=== PATIENT | male | born 1960 | race Caucasian/White ===

== ENCOUNTER 2016-06-02 03:29 | Observation (INO) | payer SELFPAY ==
[~2016-06-02] VITALS: Ht 188 cm; Wt 102.0 kg
[2016-06-02 03:31] VITALS: BP 164/86; PULSE 78; RESP 18; TEMP 98.4; O2SAT 99
[2016-06-02 03:35] VITALS: BP 164/86; PULSE 78; RESP 18; TEMP 98.4; O2SAT 97; O2SAT 98
[2016-06-02] MEDS ORDERED: MORPHINE SULFATE 4 MG/ML INJ IV PUSH ONE ×2 (03:45→05:45)
[2016-06-02] MEDS ORDERED: SODIUM CHLORIDE 0.9% FLUSH 10 ML FLUSH IVF PRN (03:45)
--- NOTE | 2016-06-02 04:21 | RADRPT ---
EXAM DATE/TIME: 06/02/2016 03:55 [facility] COMPARISON: No previous studies available for comparison. INDICATIONS : Chest pain. MEDICAL HISTORY : None. SURGICAL HISTORY : None. ENCOUNTER: Initial ACUITY: 1 day PAIN SCORE: 7/10 LOCATION: Bilateral chest FINDINGS: Postoperative median sternotomy and CABG. Mild basilar atelectasis. No focal consolidation or effusio n. No pneumothorax. CONCLUSION: 1. Postoperative CABG. Minimal basilar atelectasis. Herman Houston MD on June 02, 2016 at 4:20 Board Certified Radiologist. This report was verified electronically.
[2016-06-02 05:05] LABS: AUTOMATED NEUTROPHIL # 3.2 TH/MM3 (1.8-7.7); BASOPHIL % 0.6 % (0.0-2.0); EOSINOPHIL # 0.1 TH/MM3 (0-0.4); EOSINOPHIL % 1.3 % (0.0-4.0); HEMATOCRIT 46.8 % (39.0-51.0); HEMO FLAGS DIFF FINAL; LYMPH % 37.3 % (9.0-44.0); LYMPHOCYTE # 2.4 TH/MM3 (1.0-4.8); MEAN CELL VOLUME 91.1 FL (80.0-100.0); MEAN CORPUSCULAR HEMOGLOBIN 31.1 PG (27.0-34.0); MEAN CORPUSCULAR HGB CONC 34.1 % (32.0-36.0); NEUT % 49.8 % (16.0-70.0); PLATELET COUNT 199 TH/MM3 (150-450); RED BLOOD COUNT 5.14 MIL/MM3 (4.50-5.90); WHITE BLOOD COUNT 6.4 TH/MM3 (4.0-11.0)
[2016-06-02 05:08] LABS: ALT (GPT) 60 U/L (12-78); ANION GAP 11 MEQ/L (5-15); AST (GOT) 33 U/L (15-37); BICARBONATE 23.6 MEQ/L (21.0-32.0); BLOOD UREA NITROGEN 5 MG/DL (7-18); CHLORIDE 107 MEQ/L (98-107); GLOMERULAR FILTRATION RATE 98 ML/MIN (>89); MAGNESIUM 2.1 MG/DL (1.5-2.5); POTASSIUM 3.3 MEQ/L (3.5-5.1); SODIUM (NA) 142 MEQ/L (136-145)
[2016-06-02 05:10] LABS: APTT (PATIENT) 25.3 SEC (24.3-30.1); PROTHROMBIN TIME - PATIENT 10.7 SEC (9.8-11.6)
[2016-06-02 05:11] LABS: ALKALINE PHOSPHATASE 61 U/L (45-117); CREATINE KINASE 207 U/L (39-308); TOTAL BILIRUBIN ADULT 0.5 MG/DL (0.2-1.0)
[2016-06-02 05:25] LABS: CKMB 2.2 NG/ML (0.5-3.6)
[2016-06-02] MEDS ORDERED: SODIUM CHLORIDE 0.9% FLUSH 10 ML FLUSH IV FLUSH PRN (05:45)
--- NOTE | 2016-06-02 05:52 | PD ---
HPI Chief Complaint: Chest Pain Time Seen by Provider: 03:38 Travel History International Travel<30 days: No Contact w/Intl Traveler<30days: No Traveled to known affect area: No History of Present Illness HPI Patient is a 55 year old male who comes in complaining of chest pain. He has a history of CABG and 3 cardiac stents placed in the past. He says the pain started about 2 hours ago. He says he felt like his heart was racing and then he felt a tightness in his chest. He denies any SOB or nausea. He was given Aspirin and Nitro by EMS without improvement of his symptoms. FORMERLY [facility], [facility] Past Medical History Cardiovascular Problems: Yes Past Surgical History Coronary Artery Bypass Graft: Yes (stents x3 Cabg x3) Social History Alcohol Use: Yes Tobacco Use: Yes Substance Use: No (cocaine. injected either heroin or dilaudid) Allergies-Medications (Allergen,Severity, Reaction): Coded Allergies: Penicillin (Verified Allergy, Severe, 06/02/16) Review of Systems Except as stated in HPI: all other systems reviewed are Neg General / Constitutional: No: Fever, Chills HENT: No: Headaches, Lightheadedness Cardiovascular: Positive: Chest Pain or Discomfort Respiratory: No: Cough, Shortness of Breath Gastrointestinal: No: Nausea, Vomiting, Abdominal Pain Musculoskeletal: No: Myalgias, Edema Skin: No Rash, No Change in Pigmentation Neurologic: No: Weakness, Dizziness Physical Exam Narrative GENERAL: Awake and alert, in no acute distress SKIN: Focused skin assessment warm/dry. HEAD: Atraumatic. Normocephalic. EYES: Pupils equal and round. No scleral icterus. ENT: Mucous membranes pink and moist. NECK: Trachea midline. No JVD. CARDIOVASCULAR: Regular rate and rhythm. No murmur appreciated. RESPIRATORY: No accessory muscle use. Clear to auscultation. Breath sounds equal bilaterally. GASTROINTESTINAL: Abdomen soft, non-tender, nondistended. MUSCULOSKELETAL: No obvious deformities. No clubbing. No cyanosis. No edema. NEUROLOGICAL: Awake and alert. No obvious cranial nerve deficits. Motor grossly within normal limits. Normal speech. PSYCHIATRIC: Appropriate mood and affect; insight and judgment normal. Data Data Last Documented VS Vital Signs Date Time Temp Pulse Resp B/P Pulse Ox O2 Delivery O2 Flow Rate FiO2 06/02/16 03:35 98.4 78 18 164/86 98 Nasal Cannula 2 Orders B-Type Natriuretic Peptide (06/02/16 03:38) Ckmb (Isoenzyme) Profile (06/02/16 03:38) Complete Blood Count With Diff (06/02/16 03:38) Comprehensive Metabolic Panel (06/02/16 03:38) Magnesium (Mg) (06/02/16 03:38) Prothrombin Time / Inr (Pt) (06/02/16 03:38) Act Partial Throm Time (Ptt) (06/02/16 03:38) Troponin I (06/02/16 03:38) Chest, Single Ap (06/02/16 03:38) Ecg Monitoring (06/02/16 03:38) Bilateral Bp Monitoring (06/02/16 03:38) Iv Access Insert/Monitor (06/02/16 03:38) Oximetry (06/02/16 03:38) Oxygen Administration (06/02/16 03:38) Morphine Inj (Morphine Inj) (06/02/16 03:45) Sodium Chloride 0.9% Flush (Ns Flush) (06/02/16 03:45) CKMB (06/02/16 04:45) CKMB% (06/02/16 04:45) Morphine Inj (Morphine Inj) (06/02/16 05:45) Activity Bed Rest With Brp (06/02/16 05:44) Vital Signs (Adult) Q4H (06/02/16 05:44) Cardiac Rhythm .As Directed (06/02/16 05:44) ^ Notify Dr: Other .PRN (06/02/16 05:44) ^ Notify Dr. Parameters (06/02/16 05:44) Resp Oxygen Nasal Cannula (06/02/16 ) Diet Heart Healthy (06/02/16 Breakfast) Ckmb (Isoenzyme) Profile (06/02/16 07:45) Ckmb (Isoenzyme) Profile (06/02/16 10:45) Troponin I (06/02/16 07:45) Troponin I (06/02/16 10:45) Electrocardiogram (06/02/16 07:45) Electrocardiogram (06/02/16 10:45) ^ Obtain (06/02/16 05:44) Sodium Chloride 0.9% Flush (Ns Flush) (06/02/16 05:45) Sodium Chloride 0.9% Flush (Ns Flush) (06/02/16 09:00) Digital Service Engineer / Telemetry [id number] (06/02/16 05:44) Admit Order (Ed Use Only) (06/02/16 ) Labs Laboratory Tests Test 06/02/16 04:45 White Blood Count 6.4 TH/MM3 Red Blood Count 5.14 MIL/MM3 Hemoglobin 16.0 GM/DL Hematocrit 46.8 % Mean Corpuscular Volume 91.1 FL Mean Corpuscular Hemoglobin 31.1 PG Mean Corpuscular Hemoglobin 34.1 % Concent Red Cell Distribution Width 15.0 % Platelet Count 199 TH/MM3 Mean Platelet Volume 7.8 FL Neutrophils (%) (Auto) 49.8 % Lymphocytes (%) (Auto) 37.3 % Monocytes (%) (Auto) 11.0 % Eosinophils (%) (Auto) 1.3 % Basophils (%) (Auto) 0.6 % Neutrophils # (Auto) 3.2 TH/MM3 Lymphocytes # (Auto) 2.4 TH/MM3 Monocytes # (Auto) 0.7 TH/MM3 Eosinophils # (Auto) 0.1 TH/MM3 Basophils # (Auto) 0.0 TH/MM3 CBC Comment DIFF FINAL Differential Comment Prothrombin Time 10.7 SEC Prothromb Time International 1.0 RATIO Ratio Activated Partial 25.3 SEC Thromboplast Time Sodium Level 142 MEQ/L Potassium Level 3.3 MEQ/L Chloride Level 107 MEQ/L Carbon Dioxide Level 23.6 MEQ/L Anion Gap 11 MEQ/L Blood Urea Nitrogen 5 MG/DL Creatinine 0.82 MG/DL Estimat Glomerular Filtration 98 ML/MIN Rate Random Glucose 114 MG/DL Calcium Level 8.4 MG/DL Magnesium Level 2.1 MG/DL Total Bilirubin 0.5 MG/DL Aspartate Amino Transf 33 U/L (AST/SGOT) Alanine Aminotransferase 60 U/L (ALT/SGPT) Alkaline Phosphatase 61 U/L Total Creatine Kinase 207 U/L Creatine Kinase MB 2.2 NG/ML Troponin I LESS THAN 0.02 NG/ML B-Type Natriuretic Peptide 22 PG/ML Total Protein 7.4 GM/DL Albumin 3.7 GM/DL MDM Medical Decision Making Medical Screen Exam Complete: Yes Emergency Medical Condition: Yes Interpretation(s) ECG shows NSR at 80, no ST elevation, 0.5mm depression in V3-V5 Differential Diagnosis ACS vs NSTEMI vs STEMI Narrative Course Patient is a 55 year old male who comes in complaining of chest pain. Exam shows no acute abnormalities. IV established, labs sent. 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 Labs show no acute abnormalities. Given morphine for pain. Will be placed in chest pain center for further management. Diagnosis Primary Impression: Chest pain Qualified Code: R07.9 - Chest pain, unspecified type Admitting Information Admitting Physician Requests: Sandy Azevedo MD Jun 02, 2016 05:52
[2016-06-02 08:06] VITALS: BP 138/83; PULSE 66; RESP 16; O2SAT 96
[2016-06-02] MEDS ORDERED: PRAS5TAB PO (08:30)
[2016-06-02] MEDS ORDERED: ASPI1TAB69 PO (08:30)
[2016-06-02] MEDS ORDERED: VENL1CAP38 PO (08:30)
[2016-06-02] MEDS ORDERED: ATEN25TA PO (08:30)
[2016-06-02 08:33] LABS: CREATINE KINASE 182 U/L (39-308)
[2016-06-02] MEDS ORDERED: SODIUM CHLORIDE 0.9% FLUSH 10 ML FLUSH IV FLUSH SCH (09:00)
[2016-06-02] MEDS ORDERED: LORazepam 0.5 MG TAB PO ONE (09:30)
[2016-06-02] MEDS ORDERED: SODIUM CHLOR 0.9% 1000 ML INJ 1,000 ML IV SCH (10:20)
[2016-06-02] MEDS ORDERED: PANTOPRAZOLE SOD 40 MG DELAYED RELEASE TAB PO SCH (10:30)
[2016-06-02] MEDS ORDERED: POTASSIUM CHLORIDE 20 MEQ CONTROLLED RELEASE TAB PO ONE (10:30)
[2016-06-02 11:18] LABS: CREATINE KINASE 185 U/L (39-308)
[2016-06-02 11:31] LABS: CKMB 2.2 NG/ML (0.5-3.6)
[2016-06-02 11:35] VITALS: BP 152/87; PULSE 69; RESP 18; O2SAT 95
--- NOTE | 2016-06-02 11:39 | HHI.HP ---
HPI Primary Care Physician No Primary Care Physician Chief Complaint Chest pain History of Present Illness This is a 55-year-old male with history of CAD with a three-vessel bypass 10 years ago and then 6 and 8 years ago needing stenting as well. Recently moved to this area [facility]. Presents with a complaint of waking up around 3:00 in the morning with a central chest discomfort described as an ache/ pressure. It is still there at this time. The discomfort was about a 7 out of 10 initially, currently a 5 out of 10. He felt full diaphoretic initially. No shortness breath or nausea. He believes the discomfort is similar to when he needed his stenting in the past. States that he has been compliant with medications. He then gets a little anxious and states that he is upset with himself. He states "I was sober for 13 years, I reviewed and it." He has stated he began drinking 7-8 alcoholic beverages a day over the last week as well as using cocaine 3 days ago. Review of Systems General: Patient denies fevers, chills recent, and recent travel HEENT: Patient denies headache, sore throat, difficulty swallowing. Cardiovascular: Has the chest discomfort as mentioned above. Denies sensation of heart beating rapidly or irregularly. He was diaphoretic initially. No syncope. Respiratory: Denies shortness of breath or inspirational chest discomfort. Denies coughing wheezing or hemoptysis. GI: Patient denies nausea, vomiting, diarrhea, abdominal pain, bloody stools. Musculoskeletal: Patient denies joint pain or edema. Denies calf pain or edema. Neurovascular: Patient denies numbness, tingling, weakness in extremities. Denies headache. Endocrine: Denies polyuria and polydipsia. Hematologic: Denies easy bruising. Skin: Denies rash or itching. Past Family Social History Allergies: Coded Allergies: Penicillin (Verified Allergy, Severe, 06/02/16) Past Medical History CAD with a 3 vessel CABG 10 years ago followed by stenting on 2 other occasions. Hypertension, hyperlipidemia, substance abuse, alcohol abuse, and tobacco abuse. Denies diabetes. Past Surgical History Three-vessel bypass 10 years ago. Heart catheterizations with stenting. Reported Medications Reported Meds & Active Scripts Active Reported Effexor XR 24 HR (Venlafaxine HCl) 37.5 Mg Cap 37.5 Mg PO DAILY Aspirin 81 Mg Tabdr 81 Mg PO DAILY Effient (Prasugrel) 5 Mg Tab 5 Mg PO DAILY Atenolol 25 Mg Tab 25 Mg PO BID Active Ordered Medications Current Medications Medications (Trade) Dose Ordered Sig/Edgardo Route Start Time Stop Time Status Last Admin (NS Flush) 2 ml UNSCH PRN IVF 06/02/16 03:45 (NS Flush) 2 ml UNSCH PRN IV FLUSH 06/02/16 05:45 Sodium Chloride 2 ml 2 ml BID IV FLUSH 06/02/16 09:00 06/02/16 09:06 (NS 1000 ml Inj) 1,000 ml @ 125 mls/hr Q8H IV 06/02/16 10:20 06/02/16 18:19 (Protonix) 40 mg DAILY PO 06/02/16 10:30 Family History There is family history of CAD. Social History Patient smokes about a half pack of cigarettes daily for 30 years. He states that he has an adequate and was sober for 13 years until beginning a week ago drinking 7-8 alcoholic beverages a day as well as using cocaine 3 days ago. Physical Exam Vital Signs Vital Signs Date Time Temp Pulse Resp B/P Pulse Ox O2 Delivery O2 Flow Rate FiO2 06/02/16 08:06 66 16 138/83 96 Room Air 06/02/16 04:55 16 06/02/16 03:35 98.4 78 18 164/86 98 Nasal Cannula 2 06/02/16 03:35 18 97 Nasal Cannula 2 06/02/16 03:31 98.4 78 18 164/86 99 Physical Exam GENERAL: This is a well-nourished, well-developed patient, in no apparent distress. Patient speaks in clear complete sentences. Patient is pleasant. HEENT: Head is atraumatic and normocephalic. Neck is supple without lymphadenopathy and trachea is midline. No JVD or carotid bruits. CARDIOVASCULAR: Regular rate and rhythm without murmurs, gallops, or rubs. RESPIRATORY: Clear to auscultation. Breath sounds equal bilaterally. No wheezes , rales, or rhonchi. Chest wall is nontender. No use of accessory muscles. GASTROINTESTINAL: Abdomen is nontender, nondistended. Abdomen soft. No obvious pulsatile mass or bruit. No CVA tenderness. Strong femoral pulses bilaterally. Normal bowel sounds in all quadrants. MUSCULOSKELETAL: Patient is moving upper and lower extremities freely. No calf tenderness or edema, no Homans sign. Strong pulses in upper and lower extremities. NEUROLOGICAL: Patient is alert and oriented. Cranial nerves 2-12 are grossly intact. No focal deficits and speech is clear. SKIN: No rash and turgor is normal. Laboratory Laboratory Tests Test 06/02/16 06/02/16 06/02/16 04:45 07:50 10:09 White Blood Count 6.4 Red Blood Count 5.14 Hemoglobin 16.0 Hematocrit 46.8 Mean Corpuscular Volume 91.1 Mean Corpuscular Hemoglobin 31.1 Mean Corpuscular Hemoglobin 34.1 Concent Red Cell Distribution Width 15.0 Platelet Count 199 Mean Platelet Volume 7.8 Neutrophils (%) (Auto) 49.8 Lymphocytes (%) (Auto) 37.3 Monocytes (%) (Auto) 11.0 Eosinophils (%) (Auto) 1.3 Basophils (%) (Auto) 0.6 Neutrophils # (Auto) 3.2 Lymphocytes # (Auto) 2.4 Monocytes # (Auto) 0.7 Eosinophils # (Auto) 0.1 Basophils # (Auto) 0.0 CBC Comment DIFF FINAL Differential Comment Prothrombin Time 10.7 Prothromb Time International 1.0 Ratio Activated Partial 25.3 Thromboplast Time Sodium Level 142 Potassium Level 3.3 Chloride Level 107 Carbon Dioxide Level 23.6 Anion Gap 11 Blood Urea Nitrogen 5 Creatinine 0.82 Estimat Glomerular Filtration 98 Rate Random Glucose 114 Calcium Level 8.4 Magnesium Level 2.1 Total Bilirubin 0.5 Aspartate Amino Transf 33 (AST/SGOT) Alanine Aminotransferase 60 (ALT/SGPT) Alkaline Phosphatase 61 Total Creatine Kinase 207 182 185 Creatine Kinase MB 2.2 2.0 2.2 Troponin I LESS THAN 0.02 LESS THAN 0.02 LESS THAN 0.02 B-Type Natriuretic Peptide 22 Total Protein 7.4 Albumin 3.7 Result Diagram: 06/02/1644406/02/16444 Imaging Last 24 hours Impressions Chest X-Ray 06/02/16 0338 Signed Impressions: Service Date/Time: Thursday, June 02, 2016 03:55 - CONCLUSION: 1. Postoperative CABG. Minimal basilar atelectasis. Herman Houston MD Course EKGs have sinus rhythm without significant ST segment depressions or elevations. Assessment and Plan Assessment and Plan * Chest pain: Patient has had serial cardiac enzymes and EKGs for ruling out purposes. He has been seen by Dr. Davian Bustos of cardiology in the chest pain center and will undergo a Lexiscan. Likely patient be discharged home if the stress test were to be nonischemic. * CAD: This will be reassessed for stress testing. * Hypertension: Continue current medication. * Hyperlipidemia: Continue current medication. * Tobacco abuse: Patient has been counseled on the poor smoking cessation. * Substance abuse: Patient has been counseled on the importance of no longer using illicit drugs. Specifically cannot use cocaine while being on a beta edwige. Patient is stable at this time. He is agreeable to this plan. [place] Jun 02, 2016 11:39
[2016-06-02 12:36] VITALS: BP 140/91; PULSE 69; RESP 19; TEMP 97.8; O2SAT 93
--- NOTE | 2016-06-02 13:35 | EKG ---
Date Performed: 06/02/2016 Time Performed: 08:14:54 PTAGE: 55 years EKG: Sinus rhythm NONSPECIFIC ST & T-WAVE ABNORMALITY BORDERLINE ECG PREVIOUS TRACING : 06/02/2016 03.31 Since previous tracing, no significant change noted DOCTOR: Davian Bustos Interpretating Date/Time 06/02/2016 13:33:17
--- NOTE | 2016-06-02 13:35 | EKG ---
Date Performed: 06/02/2016 Time Performed: 03:31:08 PTAGE: 55 years EKG: Sinus rhythm NONSPECIFIC ST CHANGES ABNORMAL ECG INTERPRETATION BASED ON A DEFAULT AGE OF 42 YEARS NO PREVIOUS TRACING DOCTOR: Davian Bustos Interpretating Date/Time 06/02/2016 13:33:59
--- NOTE | 2016-06-02 13:38 | EKG ---
Date Performed: 06/02/2016 Time Performed: 10:24:12 PTAGE: 55 years EKG: SINUS BRADYCARDIA MINIMAL ST DEPRESSION BORDERLINE ECG PREVIOUS TRACING : 06/02/2016 08.14 Since previous tracing, no significant change noted DOCTOR: Davian Bustos Interpretating Date/Time 06/07/2016 07:31:28
[2016-06-02] MEDS ORDERED: REGADENOSON INJ 0.4 MG/5 ML SYR ONE (14:15)
[2016-06-02 15:34] VITALS: BP 172/82; PULSE 75; RESP 19; TEMP 98.7; O2SAT 95
[2016-06-02] MEDS ORDERED: CLON1TAB PO (16:17)
[2016-06-02] MEDS ORDERED: VENL150C39 PO (16:17)
[2016-06-02] MEDS ORDERED: PRAS10TA PO (16:17)
--- NOTE | 2016-06-02 16:29 | RADRPT ---
EXAM DATE/TIME: 06/02/2016 13:33 [facility] COMPARISON: No previous studies available for comparison. INDICATIONS : Substernal chest pain. Angina. Coronary artery disease. DOSE: 35.0 mCi Tc99m Myoview at stress. 11.0 mCi Tc99m Myoview at rest. 0.4 mg Lexiscan STRESS SYMPTOMS: Dyspnea and left arm pain. EJECTION FRACTION: 60% MEDICAL HISTORY : Substance abuse. SURGICAL HISTORY : CABG Coronary artery stent. ENCOUNTER: Initial ACUITY: 1 day PAIN SCALE: 7/10 LOCATION: Substernal chest TECHNIQUE: The patient underwent pharmacologic stress with infusion of prescribed dose. Continuous ECG tracing was monitored during stress. Gated SPECT imaging was performed after stress and conventional SPECT i maging was performed at rest. The examination was performed on a SPECT/CT scanner, both attenuation and non-corrected datasets were reviewed. FINDINGS: DISTRIBUTION: The maximum perfused segment at stress is in the anterior lateral wall. PERFUSION STUDY: The pattern of perfusion at stress is within normal limits. GATED STUDY: There is intact wall motion and thickening without hypokinetic or dyskinetic segments. CONCLUSION: Negative for stress-induced ischemia. RISK CATEGORY: Low (<1% Annual Mortality Rate) Crispin Gutierrez MD FACR on June 02, 2016 at 16:27 Board Certified Radiologist. This report was verified electronically.
--- NOTE | 2016-06-02 16:42 | HHI.DCPOC ---
Discharge Care Plan Diagnosis: (1) Chest pain (2) CAD (coronary artery disease) (3) Hx of CABG (4) H/O heart artery stent (5) Hypertension (6) Hyperlipidemia (7) Tobacco abuse (8) Substance abuse Goals to Promote Your Health * To prevent worsening of your condition and complications * To maintain your health at the optimal level Directions to Meet Your Goals Take your medications as prescribed Follow your dietary instruction Follow activity as directed Keep your appointments as scheduled Take your immunizations and boosters as scheduled If your symptoms worsen call your PCP, if no PCP go to Urgent Care Center or Emergency Room Smoking is Dangerous to Your Health. Avoid second hand smoke Call the 24-hour hour crisis hotline for domestic abuse at [facility] [place] Jun 02, 2016 16:42
--- NOTE | 2016-06-04 14:33 | TR ---
Date Performed: 06/02/2016 Time Performed: 14:12:09 DOCTOR: Ifrah Tellez DRUG LIST: CLINICAL HISTORY: REASON FOR TEST: CHEST PAIN REASON FOR ENDING: OBSERVATION: CONCLUSION: Lexiscan stress test was performed under standard four minute protocol. Radionuclid e was injected one minute prior to ending the test. No electrocardiographic abormalities were present to suggest ischemia. Nuclear imaging and interpretation are pending. COMMENTS:
== END 2016-06-02 17:38 | disposition home or self-care (01) ==
LOC: NEPC 03:29 → NEDA 05:46 → NEDH 09:55 → NEPGCP 12:35
PROVIDERS: ADMIT Internal Medicine Interventional Cardiology; ATTEND Internal Medicine Interventional Cardiology
DX: R07.9 Chest pain, unspecified (principal); Z95.5 Presence of coronary angioplasty implant and graft; Z95.1 Presence of aortocoronary bypass graft; F17.210 Nicotine dependence, cigarettes, uncomplicated; I25.10 Atherosclerotic heart disease of native coronary artery without angina pectoris; R61 Generalized hyperhidrosis; F14.90 Cocaine use, unspecified, uncomplicated; Z72.89 Other problems related to lifestyle; I10 Essential (primary) hypertension; E78.5 Hyperlipidemia, unspecified; Z79.899 Other long term (current) drug therapy; R94.31 Abnormal electrocardiogram [ECG] [EKG]; J98.11 Atelectasis
CPT/HCPCS: 71010; 78452; 80053; 82550; 82552; 83735; 83880; 84484; 85025; 85610; 85730; 93005; 93017; 96374; 96376; 99285; A9502; G0378; J2270; J2785; J7030

== ENCOUNTER 2016-07-23 16:43 | Inpatient (IN) | payer SELFPAY ==
[~2016-07-23] VITALS: Ht 188 cm; Wt 109.3 kg
[~2016-07-23 16:43] MED LIST: ASPI1TAB69 PO; ATEN25TA PO; CLON1TAB PO; PRAS10TA PO; VENL150C39 PO
[2016-07-23 16:52] VITALS: BP 136/91; PULSE 104; RESP 18; TEMP 98; O2SAT 95
[2016-07-23] MEDS ORDERED: NITROGLYCERIN 2% OINT 1 GM PACKET TOPICAL ONE (17:00)
[2016-07-23] MEDS ORDERED: THIAMINE INJ 100 MG in SODIUM CHLORIDE 0.9% INJ 100 ML IV ONE (17:00)
[2016-07-23] MEDS ORDERED: LORazepam 2 MG/ML VIAL IV PUSH ONE ×2 (17:00→18:00)
--- NOTE | 2016-07-23 17:01 | PD ---
HPI Chief Complaint: Chest Pain Time Seen by Provider: 16:55 Travel History International Travel<30 days: No Contact w/Intl Traveler<30days: No Traveled to known affect area: No History of Present Illness HPI This 56-year-old male is complaining of alcohol withdrawal and chest pain. He has a history of alcoholism. He is a recovering alcoholic for 13 years and relapsed a few months ago. He has been trying to stop drinking. 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 He also has a history of coronary artery disease. He had a coronary artery bypass surgery done 10 years ago and has had 3 stents since then. He has a very strong family history of coronary artery disease he has 3 brothers with significant coronary artery disease. He says that when he has stopped drinking recently he starts having substernal chest pain. He had chest pain just prior to arrival and he took 5-6 baby aspirin. He is not having pain now. He also took an additional atenolol. He didn't have an alcoholic drinks just prior to coming here. He is supposed to be on Effient but has not been taking it since his insurance lapsed month ago. He does smoke cigarettes. Patient was admitted at [facility] in May to the chest pain center. At that time his EKG showed nonspecific ST-T wave changes. He had a negative Lexiscan stress test that time. [facility] Past Medical History Cardiovascular Problems: Yes Past Surgical History Coronary Artery Bypass Graft: Yes (stents x3 Cabg x3) Social History Alcohol Use: Yes Tobacco Use: Yes Substance Use: No (cocaine. injected either heroin or dilaudid) Allergies-Medications (Allergen,Severity, Reaction): Coded Allergies: Penicillin (Verified Allergy, Severe, 07/23/16) Reported Meds & Prescriptions Reported Meds & Active Scripts Active Reported Atorvastatin (Atorvastatin Calcium) 40 Mg Tab 40 Mg PO HS Effient (Prasugrel) 10 Mg Tab 10 Mg PO DAILY Aspirin 81 Mg Tabdr 81 Mg PO DAILY Atenolol 25 Mg Tab 25 Mg PO BID Review of Systems General / Constitutional: No: Fever, Chills Eyes: No: Diploplia, Blurred Vision HENT: No: Headaches, Vertigo Cardiovascular: Positive: Chest Pain or Discomfort, Tachycardia, No: Palpitations Respiratory: No: Cough, Shortness of Breath Gastrointestinal: No: Vomiting, Diarrhea Genitourinary: No: Urgency, Frequency Musculoskeletal: No: Myalgias Skin: No Rash Neurologic: No: Weakness, Dizziness, Syncope Psychiatric: Positive: Anxiety, Substance Abuse Hematologic/Lymphatic: No: Easy Bruising Physical Exam Narrative GENERAL: Well-developed male. He is not tremulous at this time. His heart rate is 110 SKIN: Focused skin assessment warm/dry. HEAD: Atraumatic. Normocephalic. EYES: Pupils equal and round. No scleral icterus. No injection or drainage. ENT: No nasal bleeding or discharge. Mucous membranes pink and moist. NECK: Trachea midline. No JVD. CARDIOVASCULAR: Regular rate and rhythm. No murmur appreciated. RESPIRATORY: No accessory muscle use. Clear to auscultation. Breath sounds equal bilaterally. GASTROINTESTINAL: Abdomen soft, non-tender, nondistended. Hepatic and splenic margins not palpable. MUSCULOSKELETAL: No obvious deformities. No clubbing. No cyanosis. No edema. NEUROLOGICAL: Awake and alert. No obvious cranial nerve deficits. Motor grossly within normal limits. Normal speech. PSYCHIATRIC: Appropriate mood and affect; insight and judgment normal. Data Data Last Documented VS Vital Signs Date Time Temp Pulse Resp B/P Pulse Ox O2 Delivery O2 Flow Rate FiO2 07/23/16 17:58 102 20 126/78 97 Room Air 07/23/16 16:52 98.0 Orders Electrocardiogram (07/23/16 16:55) Complete Blood Count With Diff (07/23/16 16:55) Comprehensive Metabolic Panel (07/23/16 16:55) Ckmb (Isoenzyme) Profile (07/23/16 16:55) Troponin I (07/23/16 16:55) B-Type Natriuretic Peptide (07/23/16 16:55) Prothrombin Time / Inr (Pt) (07/23/16 16:55) Act Partial Throm Time (Ptt) (07/23/16 16:55) Urinalysis - C+S If Indicated (07/23/16 16:55) Magnesium (Mg) (07/23/16 16:55) Chest, Single Ap (07/23/16 16:55) Drug Screen, Random Urine (07/23/16 16:55) Alcohol (Ethanol) (07/23/16 16:55) Sodium Chlor 0.9% 1000 Ml Inj (Ns 1000 M (07/23/16 17:00) Thiamine Inj (Thiamine Inj) (07/23/16 17:00) Lorazepam Inj (Ativan Inj) (07/23/16 17:00) Nitroglycerin 2% Oint (Nitroglycerin 2% (07/23/16 17:00) Urine Culture (07/23/16 17:40) Lorazepam Inj (Ativan Inj) (07/23/16 18:00) CKMB (07/23/16 17:15) CKMB% (07/23/16 17:15) Ceftriaxone Inj (Rocephin Inj) (07/23/16 18:30) Aspirin Ec (Ecotrin Ec) (07/24/16 09:00) Atenolol (Tenormin) (07/23/16 21:00) Atorvastatin (Lipitor) (07/23/16 21:00) Prasugrel (Effient) (07/24/16 09:00) Place In Observation (07/23/16 ) Vital Signs (Adult) Q4H (07/23/16 18:46) Activity Oob With Assistance (07/23/16 18:46) Wet Process Miller / Telemetry .CONTINUOUS (07/23/16 18:46) Intake + Output KODAK.QSHIFT (07/23/16 18:46) Diet Heart Healthy (07/23/16 Dinner) Sodium Chloride 0.9% Flush (Ns Flush) (07/23/16 19:00) Sodium Chloride 0.9% Flush (Ns Flush) (07/23/16 21:00) Acetaminophen (Tylenol) (07/23/16 19:00) Ondansetron Inj (Zofran Inj) (07/23/16 19:00) Magnesium Hydroxide Liq (Milk Of Magnesi (07/23/16 19:00) Temazepam (Restoril) (07/23/16 19:00) Basic Metabolic Panel (Bmp) (07/24/16 06:00) Comprehensive Metabolic Panel (07/24/16 06:00) Troponin I (07/23/16 18:46) Troponin I (07/24/16 00:46) Electrocardiogram (07/23/16 19:00) Case Management Consult (07/23/16 18:46) Enoxaparin Inj (Lovenox Inj) (07/23/16 19:00) Scd Bilateral/Knee High KODAK.BID (07/23/16 18:46) Zay Bilateral/Knee High KODAK.QSHIFT (07/23/16 18:46) Labs Laboratory Tests Test 07/23/16 07/23/16 17:15 17:40 White Blood Count 7.3 TH/MM3 Red Blood Count 5.71 MIL/MM3 Hemoglobin 16.9 GM/DL Hematocrit 52.3 % Mean Corpuscular Volume 91.7 FL Mean Corpuscular Hemoglobin 29.6 PG Mean Corpuscular Hemoglobin 32.3 % Concent Red Cell Distribution Width 13.9 % Platelet Count 281 TH/MM3 Mean Platelet Volume 7.8 FL Neutrophils (%) (Auto) 51.4 % Lymphocytes (%) (Auto) 35.5 % Monocytes (%) (Auto) 10.3 % Eosinophils (%) (Auto) 2.0 % Basophils (%) (Auto) 0.8 % Neutrophils # (Auto) 3.8 TH/MM3 Lymphocytes # (Auto) 2.6 TH/MM3 Monocytes # (Auto) 0.7 TH/MM3 Eosinophils # (Auto) 0.1 TH/MM3 Basophils # (Auto) 0.1 TH/MM3 CBC Comment DIFF FINAL Differential Comment Prothrombin Time 10.0 SEC Prothromb Time International 0.9 RATIO Ratio Activated Partial 24.3 SEC Thromboplast Time Sodium Level 141 MEQ/L Potassium Level 3.5 MEQ/L Chloride Level 103 MEQ/L Carbon Dioxide Level 24.6 MEQ/L Anion Gap 13 MEQ/L Blood Urea Nitrogen 7 MG/DL Creatinine 0.89 MG/DL Estimat Glomerular Filtration 89 ML/MIN Rate Random Glucose 148 MG/DL Calcium Level 8.7 MG/DL Magnesium Level 1.9 MG/DL Total Bilirubin 0.3 MG/DL Aspartate Amino Transf 59 U/L (AST/SGOT) Alanine Aminotransferase 118 U/L (ALT/SGPT) Alkaline Phosphatase 94 U/L Total Creatine Kinase 164 U/L Creatine Kinase MB 1.1 NG/ML Troponin I LESS THAN 0.02 NG/ML B-Type Natriuretic Peptide 51 PG/ML Total Protein 7.6 GM/DL Albumin 3.6 GM/DL Ethyl Alcohol Level 193 MG/DL Urine Color YELLOW Urine Turbidity CLEAR Urine pH 6.0 Urine Specific [place] 1.026 Urine Protein 30 mg/dL Urine Glucose (UA) NEG mg/dL Urine Ketones TRACE mg/dL Urine Occult Blood NEG Urine Nitrite NEG Urine Bilirubin SMALL Urine Leukocyte Esterase TRACE Urine WBC 9-14 /hpf Urine Squamous Epithelial 0-5 /hpf Cells Urine Mucus MOD /lpf Microscopic Urinalysis Comment CULTURE INDICATED Urine Opiates Screen NEG Urine Barbiturates Screen NEG Urine Amphetamines Screen NEG Urine Benzodiazepines Screen NEG Urine Cocaine Screen NEG Urine Cannabinoids Screen NEG MDM Medical Decision Making Medical Screen Exam Complete: Yes Emergency Medical Condition: Yes Medical Record Reviewed: Yes Differential Diagnosis Differential includes alcohol withdrawal, coronary artery disease, unstable angina Narrative Course His enzymes are negative but his EKG does show ST depressions which are more prominent than they have been in the past EKG shows sinus tachycardia at a rate of 109. There are ST depressions in V3 through V6 which are more prominent than they were in May. Blood alcohol is 193. His troponin is normal now. Patient has been given thiamin and Ativan. He remains tachycardic and has become somewhat tremulous. He has occasional chest pain. With the pain the patient is having I don't think he is a candidate for outpatient detox. Diagnosis Primary Impression: Alcohol withdrawal syndrome Qualified Code: F10.230 - Alcohol withdrawal syndrome, uncomplicated Additional Impressions: Chest pain Qualified Code: R07.9 - Chest pain, unspecified type Urinary tract infection Qualified Code: N30.00 - Acute cystitis without hematuria Admitting Information Admitting Physician Requests: Kiel Shirley MD July 23, 2016 17:01
[2016-07-23] MEDS: SODIUM CHLOR 0.9% 1000 ML INJ 1,000 ML IV SCH (17:33)
--- NOTE | 2016-07-23 17:43 | RADHPO ---
EXAM DATE/TIME: 07/23/2016 17:22 [place] COMPARISON: CHEST SINGLE AP, June 02, 2016, 3:55. INDICATIONS : Chest pain. MEDICAL HISTORY : None. SURGICAL HISTORY : CABG. Coronary artery stent. ENCOUNTER: Initial ACUITY: 1 day PAIN SCORE: 9/10 LOCATION: Bilateral chest FINDINGS: The cardiac silhouette is normal in transverse diameter. The lungs are free of acute parenchymal opac ity. No effusions are identified. Median sternotomy wires are present. CONCLUSION: 1. No acute cardiopulmonary disease. Davian Ceballos MD on July 23, 2016 at 17:36 Board Certified Radiologist. This report was verified electronically.
[2016-07-23 17:44] LABS: AUTOMATED NEUTROPHIL # 3.8 TH/MM3 (1.8-7.7); BASOPHIL # 0.1 TH/MM3 (0-0.2); BASOPHIL % 0.8 % (0.0-2.0); EOSINOPHIL # 0.1 TH/MM3 (0-0.4); HEMATOCRIT 52.3 % (39.0-51.0); HEMO FLAGS DIFF FINAL; LYMPH % 35.5 % (9.0-44.0); LYMPHOCYTE # 2.6 TH/MM3 (1.0-4.8); MEAN CELL VOLUME 91.7 FL (80.0-100.0); MEAN CORPUSCULAR HEMOGLOBIN 29.6 PG (27.0-34.0); MEAN CORPUSCULAR HGB CONC 32.3 % (32.0-36.0); MONO % 10.3 % (0.0-8.0); NEUT % 51.4 % (16.0-70.0); PLATELET COUNT 281 TH/MM3 (150-450); RED BLOOD COUNT 5.71 MIL/MM3 (4.50-5.90); RED CELL DISTRIBUTION WIDTH 13.9 % (11.6-17.2); WHITE BLOOD COUNT 7.3 TH/MM3 (4.0-11.0)
[2016-07-23 17:48] LABS: BLOOD, URINE NEG (NEG); GLUCOSE,URINE NEG (NEG); KETONE, URINE TRACE mg/dL (NEG); NITRITE,URINE NEG (NEG)
[2016-07-23 17:51] LABS: CHLORIDE 103 MEQ/L (98-107); POTASSIUM 3.5 MEQ/L (3.5-5.1); SODIUM (NA) 141 MEQ/L (136-145)
[2016-07-23 17:53] LABS: URINE COLOR YELLOW (YELLW/STRAW)
[2016-07-23] MEDS ORDERED: ATOR40TA16 PO (17:53)
[2016-07-23 17:54] LABS: COMMENT (UR) CULTURE INDICATED; CULTURE IF INDICATED CULTURE INDICATED; MUCUS URINE MOD /lpf (OCC); SQUAMOUS EPITHELIAL CELL URINE 0-5 /hpf (0-5)
[2016-07-23 17:55] LABS: ANION GAP 13 MEQ/L (5-15); BICARBONATE 24.6 MEQ/L (21.0-32.0); BLOOD UREA NITROGEN 7 MG/DL (7-18); MAGNESIUM 1.9 MG/DL (1.5-2.5)
[2016-07-23 17:56] LABS: BARBITURATES, URINE NEG (NEG); COCAINE, URINE NEG (NEG)
[2016-07-23 17:57] LABS: AMPHETAMINE, URINE NEG (NEG)
[2016-07-23 17:57] LABS: APTT (PATIENT) 24.3 SEC (24.3-30.1); INTERNATIONAL NORMALIZED RATIO 0.9 RATIO
[2016-07-23 17:58] VITALS: BP 126/78; PULSE 102; RESP 20; O2SAT 97
[2016-07-23 17:58] LABS: ALT (GPT) 118 U/L (12-78); AST (GOT) 59 U/L (15-37); GLOMERULAR FILTRATION RATE 89 ML/MIN (>89)
[2016-07-23 18:00] LABS: TOTAL BILIRUBIN ADULT 0.3 MG/DL (0.2-1.0)
[2016-07-23 18:01] LABS: ALKALINE PHOSPHATASE 94 U/L (45-117); CREATINE KINASE 164 U/L (39-308)
[2016-07-23 18:20] LABS: CKMB 1.1 NG/ML (0.5-3.6)
[2016-07-23] MEDS ORDERED: cefTRIAXone INJ 1,000 MG in SODIUM CHLORIDE 0.9% INJ 100 ML IV ONE (18:30)
[2016-07-23] MEDS ORDERED: ACETAMINOPHEN 325 MG TAB PO PRN (19:00)
[2016-07-23] MEDS ORDERED: ONDANSETRON HCL 4 MG/2 ML VIAL IVP PRN (19:00)
[2016-07-23] MEDS ORDERED: MAGNESIUM HYDROXIDE SUSP 30 ML CUP PO PRN (19:00)
[2016-07-23] MEDS ORDERED: TEMAZEPAM 15 MG CAP PO PRN (19:00)
[2016-07-23] MEDS ORDERED: SODIUM CHLORIDE 0.9% FLUSH 10 ML FLUSH IV FLUSH PRN (19:00)
[2016-07-23 19:39] VITALS: BP 125/81; PULSE 99; RESP 20; O2SAT 96
[2016-07-23] MEDS ORDERED: FLUMAZENIL 0.5 MG/5 ML VIAL IV PUSH PRN (20:00)
[2016-07-23] MEDS ORDERED: HALOPERIDOL LACTATE 5 MG/ML AMP IM PRN (20:00)
[2016-07-23] MEDS ORDERED: LORazepam 2 MG TAB PO PRN (20:00)
[2016-07-23] MEDS ORDERED: ENOXAPARIN SODIUM 40 MG/0.4 ML SYRINGE SQ SCH (20:00)
[2016-07-23] MEDS ORDERED: LORazepam 2 MG/ML VIAL IV PUSH PRN ×3 (20:00)
--- NOTE | 2016-07-23 20:48 | HHI.HP ---
HPI Service [facility] [address] Hospitalists Primary Care Physician No Primary Care Physician Admission Diagnosis CHEST PAIN, ALCOHOL WITHRAWL, UTI Diagnoses: Chief Complaint: chest pain , tremors, palpitations Travel History International Travel<30 Days: No Contact w/Intl Traveler <30 Da: No Traveled to Known Affected Are: No History of Present Illness 56-year-old male with history of coronary artery disease with CABG x3 and cardiac stents x3 , polysubstance use who came to the emergency room complaining of alcohol withdrawal symptoms and chest pain. He has a history of alcoholism. He is a recovering alcoholic for 13 years and relapsed a few months ago. Says SMA is full and he was detoxing at home. He has been trying to stop drinking. 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 He also has a history of coronary artery disease. He had a coronary artery bypass surgery done 10 years ago and has had 3 stents since then 4 years ago. He has a very strong family history of coronary artery disease he has 3 brothers with significant coronary artery disease. He says that when he has stopped drinking recently he starts having substernal chest pain. He had chest pain just prior to arrival and he took 5-6 baby aspirin. He is not having pain now. He also took an additional atenolol. He didn't have an alcoholic drinks just prior to coming here, however his breath smells like alcohol. He is supposed to be on Effient but has not been taking it since his insurance lapsed month ago. He does smoke cigarettes. Patient was admitted at [facility] in May to the chest pain center. At that time his EKG showed nonspecific ST-T wave changes. He had a negative Lexiscan stress test that time. He also says she has some difficulties urinating. Says he was not able to eat much for the past days. Says she has diarrhea on /off. No vomiting. No nausea. No abdominal pain or suprapubic pain. Denies sob, lightheadedness.o motor deficit. No fever or chills. No other complaints at this time. Review of Systems ROS Limitations: Clinical Condition, Intoxication Except as stated in HPI: all other systems reviewed are Neg Past Family Social History Past Medical History CABG x3 and cardiac stents x3 , polysubstance use Past Surgical History CABG 10 years ago , cardiac stents 4 years ago Reported Medications Reported Meds & Active Scripts Active Reported Atorvastatin (Atorvastatin Calcium) 40 Mg Tab 40 Mg PO HS Effient (Prasugrel) 10 Mg Tab 10 Mg PO DAILY Aspirin 81 Mg Tabdr 81 Mg PO DAILY Atenolol 25 Mg Tab 25 Mg PO BID Allergies: Coded Allergies: Penicillin (Verified Allergy, Severe, 07/23/16) Family History Bothers also with extensive cardiac history - CAD Social History Tobacco use 1 pack per day Started drinking EtOH at 22 ya. Alcohol use 1-2. quart vodka daily , quit 13 years ago, relapsed 2 months ago. Illicit drug use: coccaine last use 6 month ago Physical Exam Vital Signs Vital Signs Date Time Temp Pulse Resp B/P Pulse Ox O2 Delivery O2 Flow Rate FiO2 07/23/16 20:18 100 20 98 07/23/16 19:39 99 20 125/81 96 Room Air 07/23/16 17:58 102 20 126/78 97 Room Air 07/23/16 16:52 98.0 104 18 136/91 95 Physical Exam GENERAL: This is a well-nourished, well-developed patient, in no apparent distress, breath smelling alcohol. SKIN: No rashes, ecchymoses or lesions. Cool and dry. HEAD: Atraumatic. Normocephalic. No temporal or scalp tenderness. EYES: Pupils equal round and reactive. Extraocular motions intact. No scleral icterus. No injection or drainage. ENT: Nose without bleeding, purulent drainage or septal hematoma. Throat without erythema, tonsillar hypertrophy or exudate. Uvula midline. Airway patent. NECK: Trachea midline. No JVD or lymphadenopathy. Supple, nontender, no meningeal signs. CARDIOVASCULAR: Midchest surgical scar. Regular rate and rhythm without murmurs , gallops, or rubs. RESPIRATORY: Clear to auscultation. Breath sounds equal bilaterally. No wheezes , rales, or rhonchi. GASTROINTESTINAL: Abdomen soft, non-tender, nondistended. No hepato-splenomegaly , or palpable masses. No guarding. MUSCULOSKELETAL: Extremities without clubbing, cyanosis, or edema. No joint tenderness, effusion, or edema noted. No calf tenderness. Negative Homans sign bilaterally. NEUROLOGICAL: Awake and alert. Cranial nerves II through XII intact. Motor and sensory grossly within normal limits. Five out of 5 muscle strength in all muscle groups. Normal speech. Laboratory Laboratory Tests Test 07/23/16 07/23/16 17:15 17:40 White Blood Count 7.3 Red Blood Count 5.71 Hemoglobin 16.9 Hematocrit 52.3 Mean Corpuscular Volume 91.7 Mean Corpuscular Hemoglobin 29.6 Mean Corpuscular Hemoglobin 32.3 Concent Red Cell Distribution Width 13.9 Platelet Count 281 Mean Platelet Volume 7.8 Neutrophils (%) (Auto) 51.4 Lymphocytes (%) (Auto) 35.5 Monocytes (%) (Auto) 10.3 Eosinophils (%) (Auto) 2.0 Basophils (%) (Auto) 0.8 Neutrophils # (Auto) 3.8 Lymphocytes # (Auto) 2.6 Monocytes # (Auto) 0.7 Eosinophils # (Auto) 0.1 Basophils # (Auto) 0.1 CBC Comment DIFF FINAL Differential Comment Prothrombin Time 10.0 Prothromb Time International 0.9 Ratio Activated Partial 24.3 Thromboplast Time Sodium Level 141 Potassium Level 3.5 Chloride Level 103 Carbon Dioxide Level 24.6 Anion Gap 13 Blood Urea Nitrogen 7 Creatinine 0.89 Estimat Glomerular Filtration 89 Rate Random Glucose 148 Calcium Level 8.7 Magnesium Level 1.9 Total Bilirubin 0.3 Aspartate Amino Transf 59 (AST/SGOT) Alanine Aminotransferase 118 (ALT/SGPT) Alkaline Phosphatase 94 Total Creatine Kinase 164 Creatine Kinase MB 1.1 Troponin I LESS THAN 0.02 B-Type Natriuretic Peptide 51 Total Protein 7.6 Albumin 3.6 Ethyl Alcohol Level 193 Urine Color YELLOW Urine Turbidity CLEAR Urine pH 6.0 Urine Specific [place] 1.026 Urine Protein 30 Urine Glucose (UA) NEG Urine Ketones TRACE Urine Occult Blood NEG Urine Nitrite NEG Urine Bilirubin SMALL Urine Leukocyte Esterase TRACE Urine WBC 9-14 Urine Squamous Epithelial 0-5 Cells Urine Mucus MOD Microscopic Urinalysis Comment CULTURE INDICATED Urine Opiates Screen NEG Urine Barbiturates Screen NEG Urine Amphetamines Screen NEG Urine Benzodiazepines Screen NEG Urine Cocaine Screen NEG Urine Cannabinoids Screen NEG Date/Time Procedure Status Source Growth 07/23/16 17:40 Urine Culture Received Urine Clean Catch Pending Result Diagram: 07/23/165 07/23/16 1715 Imaging Last Impressions Chest X-Ray 07/23/16 1655 Signed Impressions: Service Date/Time: Saturday, July 23, 2016 17:22 - CONCLUSION: 1. No acute cardiopulmonary disease. Davian Ceballos MD Assessment and Plan Assessment and Plan Chest pain. Patient with h/o CAD not taking Effient for the past 1 month because run out of insurance. Alcohol withdrawal syndrome Acute cystitis without hematuria Transaminitis 2/2 EtOH use EKG reviewed and also findings discussed with ED physician: show ST depressions which are more prominent than they have been in the past EKG shows sinus tachycardia at a rate of 109. There are ST depressions in V3 through V6 which are more prominent than they were in May. His first troponin is normal, will trend. Repeat EKG Patient was here in May 2016 and had a normal meli scan Consult cardiology Monitor on telemetry Blood alcohol is 193 on admission. Start CIWA protocol. Folate/MVT/thiamine Continue Atorvastatin 40 Mg PO HS, Effient 10 Mg PO DAILY, Aspirin 81 Mg PO DAILY, Atenolol 25 Mg PO BID Started IVF Monitor VS UA reviewed patient with UTI. Start rocephine. Urine cultures are pending. Monitor urine cx. Monitor labs . Monitor electrolytes and replace. Monitor LFT DVT ppx SCD /TEDs lovenox Discussed Condition With patient, nurse, ED physician Physician Certification 2 Midnight Certification Type: Admission for Inpatient Services Order for Inpatient Services The services are ordered in accordance with Medicare regulations or non- Medicare payer requirements, as applicable. In the case of services not specified as inpatient-only, they are appropriately provided as inpatient services in accordance with the 2-midnight benchmark. Estimated LOS (days): 3 days is the estimated time the patient will need to remain in the hospital, assuming treatment plan goals are met and no additional complications. Post-Hospital Plan: Home Tati Henriquez MD July 23, 2016 20:48
[2016-07-23] MEDS ORDERED: cefTRIAXone INJ 1,000 MG in SODIUM CHLORIDE 0.9% INJ 100 ML IV SCH (21:00)
[2016-07-23] MEDS: SODIUM CHLORIDE 0.9% FLUSH 10 ML FLUSH IV FLUSH SCH (21:00)
[2016-07-23 21:11] VITALS: BP 132/83; PULSE 97; RESP 18; TEMP 98.6; O2SAT 99
[2016-07-23] MEDS: ATENOLOL 25 MG TAB PO SCH (21:12)
[2016-07-23] MEDS: LORazepam 2 MG/ML VIAL IV PUSH PRN (21:12)
[2016-07-23] MEDS: ATORVASTATIN 40 MG TAB PO SCH (21:13)
[2016-07-23 23:00] VITALS: PULSE 100
[2016-07-24] VITALS (8 sets, daily range): BP systolic 134–158; BP diastolic 81–98; PULSE 58–81; RESP 18–21; TEMP 95.7–98; O2SAT 21–98
[2016-07-24] MEDS: LORazepam 2 MG/ML VIAL IV PUSH PRN ×3 (00:22→05:42)
[2016-07-24] MEDS: SODIUM CHLOR 0.9% 1000 ML INJ 1,000 ML IV SCH ×3 (03:20→20:18)
[2016-07-24 07:05] LABS: CHLORIDE 107 MEQ/L (98-107); POTASSIUM 3.8 MEQ/L (3.5-5.1); SODIUM (NA) 142 MEQ/L (136-145)
[2016-07-24 07:09] LABS: ANION GAP 7 MEQ/L (5-15); BICARBONATE 28.3 MEQ/L (21.0-32.0); BLOOD UREA NITROGEN 9 MG/DL (7-18); MAGNESIUM 1.9 MG/DL (1.5-2.5)
[2016-07-24 07:12] LABS: ALT (GPT) 88 U/L (12-78)
[2016-07-24 07:13] LABS: AST (GOT) 37 U/L (15-37); GLOMERULAR FILTRATION RATE 107 ML/MIN (>89)
[2016-07-24 07:14] LABS: TOTAL BILIRUBIN ADULT 0.5 MG/DL (0.2-1.0)
[2016-07-24 07:15] LABS: ALKALINE PHOSPHATASE 65 U/L (45-117)
--- NOTE | 2016-07-24 08:26 | HHI.PR ---
Subjective Remarks Diarrhea subsided, says he was able to eat some crackers in the morning. No nausea or vomiting. Denies fever or chills. No abdominal pain or suprapubic pain. Urine is darker but better than yesterday. Still with tremor. Objective Vitals Vital Signs Date Time Temp Pulse Resp B/P Pulse Ox O2 Delivery O2 Flow Rate FiO2 07/24/16 04:00 98.0 58 18 142/98 97 07/24/16 00:21 97.0 81 20 141/81 95 07/23/16 23:00 100 07/23/16 21:11 98.6 97 18 132/83 99 07/23/16 20:18 100 20 98 07/23/16 19:39 99 20 125/81 96 Room Air 07/23/16 17:58 102 20 126/78 97 Room Air 07/23/16 16:52 98.0 104 18 136/91 95 I/O 07/23/16 07/23/16 07/23/16 07/24/16 07/24/16 07/24/16 07:00 15:00 23:00 07:00 15:00 23:00 Intake Total 550 ml 556 ml Balance 550 ml 556 ml Intake IV Total 550 ml 556 ml # Voids 1 4 # Bowel Movements 1 Result Diagram: 07/23/16 1715 07/24/16 0619 Imaging Last Impressions Chest X-Ray 07/23/16 1655 Signed Impressions: Service Date/Time: Saturday, July 23, 2016 17:22 - CONCLUSION: 1. No acute cardiopulmonary disease. Davian Ceballos MD Objective Remarks GENERAL: This is a well-nourished, well-developed patient, in no apparent distress, breath smelling alcohol. SKIN: No rashes, ecchymoses or lesions. Cool and dry. HEAD: Atraumatic. Normocephalic. No temporal or scalp tenderness. EYES: Pupils equal round and reactive. Extraocular motions intact. No scleral icterus. No injection or drainage. ENT: Nose without bleeding, purulent drainage or septal hematoma. Throat without erythema, tonsillar hypertrophy or exudate. Uvula midline. Airway patent. NECK: Trachea midline. No JVD or lymphadenopathy. Supple, nontender, no meningeal signs. CARDIOVASCULAR: Midchest surgical scar. Regular rate and rhythm without murmurs , gallops, or rubs. RESPIRATORY: Clear to auscultation. Breath sounds equal bilaterally. No wheezes , rales, or rhonchi. GASTROINTESTINAL: Abdomen soft, non-tender, nondistended. No hepato-splenomegaly , or palpable masses. No guarding. MUSCULOSKELETAL: Extremities without clubbing, cyanosis, or edema. No joint tenderness, effusion, or edema noted. No calf tenderness. Negative Homans sign bilaterally. NEUROLOGICAL: Awake and alert. Cranial nerves II through XII intact. Motor and sensory grossly within normal limits. Five out of 5 muscle strength in all muscle groups. Normal speech. A/P Assessment and Plan Chest pain. Patient with h/o CAD not taking Effient for the past 1 month because run out of insurance. Alcohol withdrawal syndrome Acute cystitis without hematuria Transaminitis 2/2 EtOH use EKG reviewed and also findings discussed with ED physician: show ST depressions which are more prominent than they have been in the past EKG shows sinus tachycardia at a rate of 109. There are ST depressions in V3 through V6 which are more prominent than they were in May. His first troponin is normal, will trend. Repeat EKG Patient was here in May 2016 and had a normal meli scan Consult cardiology Monitor on telemetry Blood alcohol is 193 on admission. Continue CIWA protocol. Folate/MVT/thiamine Continue Atorvastatin 40 Mg PO HS, Effient 10 Mg PO DAILY, Aspirin 81 Mg PO DAILY, Atenolol 25 Mg PO BID Started IVF Monitor VS UA reviewed patient with UTI. Start rocephine. Urine cultures are pending. Monitor urine cx. Monitor labs . Monitor electrolytes and replace. Monitor LFT DVT ppx SCD /TEDs lovenox Discussed Condition With patient, nurse Tati Henriquez MD July 24, 2016 08:26
[2016-07-24] MEDS: THIAMINE HCL 100 MG TAB PO SCH (08:57)
[2016-07-24] MEDS: MULTIVITAMINS/MINERALS THERAPEUTIC TAB PO SCH (08:57)
[2016-07-24] MEDS: ATENOLOL 25 MG TAB PO SCH ×2 (08:57→20:16)
[2016-07-24] MEDS: ASPIRIN EC 81 MG TABEC PO SCH (08:57)
[2016-07-24] MEDS: FOLIC ACID 1 MG TAB PO SCH (08:57)
[2016-07-24] MEDS: SODIUM CHLORIDE 0.9% FLUSH 10 ML FLUSH IV FLUSH SCH ×2 (08:58→20:17)
[2016-07-24] MEDS: PRASUGREL 10 MG TAB PO SCH (09:09)
[2016-07-24] MEDS: LORazepam 1 MG TAB PO PRN ×3 (09:09→20:16)
--- NOTE | 2016-07-24 16:20 | EKG ---
Date Performed: 07/23/2016 Time Performed: 16:42:00 PTAGE: 56 years EKG: Sinus tachycardia. Possible left atrial abnormality Possible anterior infarct - age undeter mined Lateral ST-T changes are nonspecific Compared to previous tracing, the patient is now tachycard ic and has ST segment shifts, potentially consistent with ischemia Clinical correlation is suggested Abnormal ECG NO PREVIOUS TRACING DOCTOR: Ifrah Tellez Interpretating Date/Time 07/24/2016 16:18:31
--- NOTE | 2016-07-24 16:24 | EKG ---
Date Performed: 07/23/2016 Time Performed: 22:30:46 PTAGE: 56 years EKG: Sinus rhythm . Possible left atrial abnormality Ant/septal and lateral ST-T changes are nonspecific Compared to pr evious tracing, the patient is no longer tachycardic Borderline ECG PREVIOUS TRACING : 07/23/2016 16.42 DOCTOR: Ifrah Tellez Interpretating Date/Time 07/24/2016 16:23:17
[2016-07-24] MEDS: ATORVASTATIN 40 MG TAB PO SCH (20:16)
[2016-07-24] MEDS ORDERED: cefTRIAXone INJ 1,000 MG in SODIUM CHLORIDE 0.9% INJ 100 ML IV SCH (21:00)
[2016-07-24] MEDS: LORazepam 0.5 MG TAB PO PRN (22:35)
[2016-07-25 00:53] VITALS: BP 135/71; PULSE 60; RESP 16; TEMP 97.6; O2SAT 100
[2016-07-25] MEDS: LORazepam 1 MG TAB PO PRN (04:18)
[2016-07-25 05:04] VITALS: BP 139/81; PULSE 69; RESP 18; TEMP 97.9; O2SAT 99
[2016-07-25] MEDS: LORazepam 0.5 MG TAB PO PRN (06:15)
[2016-07-25 07:48] LABS: AUTOMATED NEUTROPHIL # 4.9 TH/MM3 (1.8-7.7); BASOPHIL % 0.3 % (0.0-2.0); EOSINOPHIL # 0.2 TH/MM3 (0-0.4); EOSINOPHIL % 2.9 % (0.0-4.0); HEMATOCRIT 46.4 % (39.0-51.0); HEMO FLAGS DIFF FINAL; LYMPH % 23.6 % (9.0-44.0); LYMPHOCYTE # 1.8 TH/MM3 (1.0-4.8); MEAN CELL VOLUME 90.3 FL (80.0-100.0); MEAN CORPUSCULAR HEMOGLOBIN 30.6 PG (27.0-34.0); MEAN CORPUSCULAR HGB CONC 33.9 % (32.0-36.0); NEUT % 65.2 % (16.0-70.0); PLATELET COUNT 216 TH/MM3 (150-450); RED BLOOD COUNT 5.14 MIL/MM3 (4.50-5.90); RED CELL DISTRIBUTION WIDTH 13.4 % (11.6-17.2); WHITE BLOOD COUNT 7.6 TH/MM3 (4.0-11.0)
[2016-07-25 08:00] VITALS: BP 149/95; PULSE 75; RESP 20; TEMP 96.5; O2SAT 96
[2016-07-25 08:01] LABS: BICARBONATE 27.1 MEQ/L (21.0-32.0); MAGNESIUM 2.1 MG/DL (1.5-2.5)
[2016-07-25] MEDS: ASPIRIN EC 81 MG TABEC PO SCH (08:25)
[2016-07-25] MEDS: MULTIVITAMINS/MINERALS THERAPEUTIC TAB PO SCH (08:25)
[2016-07-25] MEDS: ATENOLOL 25 MG TAB PO SCH (08:26)
[2016-07-25] MEDS: THIAMINE HCL 100 MG TAB PO SCH (08:26)
[2016-07-25] MEDS: FOLIC ACID 1 MG TAB PO SCH (08:26)
[2016-07-25] MEDS: SODIUM CHLORIDE 0.9% FLUSH 10 ML FLUSH IV FLUSH SCH (08:28)
[2016-07-25] MEDS: PRASUGREL 10 MG TAB PO SCH (08:28)
[2016-07-25] MEDS: SODIUM CHLOR 0.9% 1000 ML INJ 1,000 ML IV SCH (08:28)
--- NOTE | 2016-07-25 08:43 | HHI.DS ---
Discharge Summary Admission Date July 23, 2016 at 20:49 Discharge Date: July 25, 2016 Admitting Diagnosis CHEST PAIN, ALCOHOL WITHRAWL, UTI (1) Urinary tract infection ICD Code: N39.0 Diagnosis: Principal (2) Substance abuse ICD Code: F19.10 Diagnosis: Principal (3) Alcohol withdrawal syndrome ICD Code: F10.239 Diagnosis: Principal (4) CAD (coronary artery disease) ICD Code: I25.10 Diagnosis: Secondary (5) Hyperlipidemia ICD Code: E78.5 Diagnosis: Secondary (6) Tobacco abuse ICD Code: Z72.0 Diagnosis: Secondary (7) Chest pain ICD Code: R07.9 Diagnosis: Principal (8) Hypertension ICD Code: I10 Diagnosis: Secondary (9) Hx of CABG ICD Code: Z95.1 Diagnosis: Secondary (10) H/O heart artery stent ICD Code: Z95.5 Diagnosis: Secondary Procedures none Brief History - From Admission 56-year-old male with history of coronary artery disease with CABG x3 and cardiac stents x3 , polysubstance use who came to the emergency room complaining of alcohol withdrawal symptoms and chest pain. He has a history of alcoholism. He is a recovering alcoholic for 13 years and relapsed a few months ago. Says SMA is full and he was detoxing at home. He has been trying to stop drinking. 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 He also has a history of coronary artery disease. He had a coronary artery bypass surgery done 10 years ago and has had 3 stents since then 4 years ago. He has a very strong family history of coronary artery disease he has 3 brothers with significant coronary artery disease. He says that when he has stopped drinking recently he starts having substernal chest pain. He had chest pain just prior to arrival and he took 5-6 baby aspirin. He is not having pain now. He also took an additional atenolol. He didn't have an alcoholic drinks just prior to coming here, however his breath smells like alcohol. He is supposed to be on Effient but has not been taking it since his insurance lapsed month ago. He does smoke cigarettes. Patient was admitted at [facility] in May to the chest pain center. At that time his EKG showed nonspecific ST-T wave changes. He had a negative Lexiscan stress test that time. He also says she has some difficulties urinating. Says he was not able to eat much for the past days. Says she has diarrhea on /off. No vomiting. No nausea. No abdominal pain or suprapubic pain. Denies sob, lightheadedness.o motor deficit. No fever or chills. No other complaints at this time. CBC/BMP: 07/25/16 0637 07/25/16 0637 Significant Findings Laboratory Tests Test 07/23/16 07/23/16 07/23/16 07/24/16 17:15 17:40 20:40 06:19 Hematocrit 52.3 % (39.0-51.0) Monocytes (%) (Auto) 10.3 % (0.0-8.0) Random Glucose 148 MG/DL (74-106) Aspartate Amino Transf 59 U/L (15-37) (AST/SGOT) Alanine Aminotransferase 118 U/L (12-78) 88 U/L (12-78) (ALT/SGPT) Troponin I LESS THAN 0.02 LESS THAN 0.02 LESS THAN 0.02 NG/ML NG/ML NG/ML (0.02-0.05) (0.02-0.05) (0.02-0.05) Ethyl Alcohol Level 193 MG/DL (0-5) Urine Protein 30 mg/dL (NEG-TRACE) Urine Ketones TRACE mg/dL (NEG) Urine Bilirubin SMALL (NEG) Urine Leukocyte Esterase TRACE (NEG) Urine WBC 9-14 /hpf (0-5) Urine Mucus MOD /lpf (OCC) Albumin 3.2 GM/DL (3.4-5.0) Imaging Last Impressions Chest X-Ray 07/23/16 1655 Signed Impressions: Service Date/Time: Saturday, July 23, 2016 17:22 - CONCLUSION: 1. No acute cardiopulmonary disease. Davian Ceballos MD PE at Discharge GENERAL: This is a well-nourished, well-developed patient, in no apparent distress, breath smelling alcohol. SKIN: No rashes, ecchymoses or lesions. Cool and dry. HEAD: Atraumatic. Normocephalic. No temporal or scalp tenderness. EYES: Pupils equal round and reactive. Extraocular motions intact. No scleral icterus. No injection or drainage. ENT: Nose without bleeding, purulent drainage or septal hematoma. Throat without erythema, tonsillar hypertrophy or exudate. Uvula midline. Airway patent. NECK: Trachea midline. No JVD or lymphadenopathy. Supple, nontender, no meningeal signs. CARDIOVASCULAR: Midchest surgical scar. Regular rate and rhythm without murmurs , gallops, or rubs. RESPIRATORY: Clear to auscultation. Breath sounds equal bilaterally. No wheezes , rales, or rhonchi. GASTROINTESTINAL: Abdomen soft, non-tender, nondistended. No hepato-splenomegaly , or palpable masses. No guarding. MUSCULOSKELETAL: Extremities without clubbing, cyanosis, or edema. No joint tenderness, effusion, or edema noted. No calf tenderness. Negative Homans sign bilaterally. NEUROLOGICAL: Awake and alert. Cranial nerves II through XII intact. Motor and sensory grossly within normal limits. Five out of 5 muscle strength in all muscle groups. Normal speech. Pt update on day of discharge Eating well, no n/v/d/c. Chest pain subsided, no palpitations. Less tremors. No urinary complaints. No fever or chills. Wants to go home. Hospital Course Chest pain. Patient with h/o CAD not taking Effient for the past 1 month because run out of insurance. Says he is not taking Effient anymore. Had a normal meli scan in May 2016. Chest pain and palpitations related to EtOH use/ withdrawals. Alcohol withdrawal syndrome. Resolving Acute cystitis without hematuria Transaminitis 2/2 EtOH use , improved EKG reviewed and also findings discussed with ED physician: show ST depressions which are more prominent than they have been in the past EKG shows sinus tachycardia at a rate of 109. There are ST depressions in V3 through V6 which are more prominent than they were in May. His first troponin is normal, will trend. Repeat EKG Patient was here in May 2016 and had a normal meli scan Monitor on telemetry Blood alcohol is 193 on admission. Continue CIWA protocol. Folate/MVT/thiamine Continue Atorvastatin 40 Mg PO HS, Effient 10 Mg PO DAILY, Aspirin 81 Mg PO DAILY, Atenolol 25 Mg PO BID. Says he is not taking Effient anymore. Received IVF Monitor VS UA reviewed patient with UTI. Received rocephine. Urine cultures are pending. Monitor urine cx. Change abx to po at DC. Monitor labs . Monitor electrolytes and replace. Monitor LFT DVT ppx SCD /TEDs lovenox Improved.Discharged home in stable condition. Pt Condition on Discharge: Stable Discharge Disposition: Discharge Home Discharge Time: > 30 minutes Discharge Instructions DIET: Follow Instructions for: Heart Healthy Diet Activities you can perform: Regular-No Restrictions Follow up Referrals: PCP Follow-up - 07/28/16 with Jessie Huerta MD New Medications: Ciprofloxacin (Ciprofloxacin) 500 Mg Tab 500 MG PO BID Infection #6 Ref 0 TAB Lorazepam (Ativan) 0.5 Mg Tab 0.5 MG PO Q6H PRN ANXIETY AND/OR AGITATION #15 Ref 0 TAB Folic Acid (Folate) 1 Mg Tab 1 MG PO DAILY mvt #30 TAB Multiple Vitamins W/ Minerals (Thera M Plus) 1 Tab 1 TAB PO DAILY mvt #30 TAB Thiamine (Vitamin B-1) 100 Mg Tab 100 MG PO DAILY mvt #30 TAB Continued Medications: Aspirin (Aspirin) 81 Mg Tabdr 81 MG PO DAILY TAB Atenolol (Atenolol) 25 Mg Tab 25 MG PO BID Blood Pressure Management #60 Ref 0 TAB Atorvastatin (Atorvastatin) 40 Mg Tab 40 MG PO HS Cholesterol Management #30 Ref 0 TAB Discontinued Medications: Prasugrel (Effient) 10 Mg Tab 10 MG PO DAILY Blood Clot Prevention #30 Ref 0 TAB Tati Henriquez MD July 25, 2016 08:43
[2016-07-25] MEDS ORDERED: LORA-392 PO (08:44)
[2016-07-25] MEDS ORDERED: THERM PO (08:45)
[2016-07-25] MEDS ORDERED: FOLI1TAB4 PO (08:45)
[2016-07-25] MEDS ORDERED: VITA100T2 PO (08:45)
[2016-07-25] MEDS ORDERED: CIPR500T2 PO (08:46)
== END 2016-07-25 09:38 | disposition home or self-care (01) | DRG 313 ==
LOC: PHED 16:43 → PHEDA 18:56 → PH3A 20:25 → OBSVTOIN 20:49
PROVIDERS: ADMIT Hospitalist; ATTEND Hospitalist
DX: R07.9 Chest pain, unspecified (principal); I25.810 Atherosclerosis of coronary artery bypass graft(s) without angina pectoris; N30.00 Acute cystitis without hematuria; I10 Essential (primary) hypertension; F10.239 Alcohol dependence with withdrawal, unspecified; Z95.1 Presence of aortocoronary bypass graft; E78.5 Hyperlipidemia, unspecified; Y90.6 Blood alcohol level of 120-199 mg/100 ml; F17.210 Nicotine dependence, cigarettes, uncomplicated; Z79.82 Long term (current) use of aspirin; Z79.899 Other long term (current) drug therapy; Z95.5 Presence of coronary angioplasty implant and graft; Z82.49 Family history of ischemic heart disease and other diseases of the circulatory system
CPT/HCPCS: 71010; 80048; 80053; 80307; 81001; 82550; 82552; 82948; 83735; 83880; 84484; 85025; 85610; 85730; 87086; 93005; 96365; 96375; 96376; J0696; J2060; J3411; J7030

== ENCOUNTER 2016-09-07 15:32 | Emergency (ER) | payer OTHER ==
[~2016-09-07] VITALS: Ht 188 cm; Wt 107.0 kg
[~2016-09-07 15:32] MED LIST changes: +ATOR40TA16 PO; +CIPR500T2 PO; -CLON1TAB PO; +FOLI1TAB4 PO; +LORA-392 PO; -PRAS10TA PO; +THERM PO; -VENL150C39 PO; +VITA100T2 PO
--- NOTE | 2016-09-07 15:42 | PD ---
HPI Chief Complaint: desir act Time Seen by Provider: 15:38 Travel History International Travel<30 days: No Contact w/Intl Traveler<30days: No History of Present Illness HPI pd brought patient in due to desir act, patient is an alcoholic and has been on a 6 day binge. stated to [place] police that he wanted to kill himself, no plan, denies ingestion...last drink 30min ago, drinks liquor mostly and prior to this 6 day binge he was sober for 9yrs....MEDICALLY PATIENT GAVE H/O TRIPLE BYPASS IN [facility], HE IS NOT LOCAL, DOCUMENTATION LEAD IS DR MANCILLA FROM [place].....PT PMHX: HTN (LABETALOL), HIGH CHOLESTEROL (NONCOMPLIANT) AND TAKES BABY ASA FOR ACS. PFSH Past Medical History Anxiety: Yes Heart Rhythm Problems: Yes (years ago atenolol started after stent placed) Cardiovascular Problems: Yes High Cholesterol: Yes Genitourinary: No Hypertension: Yes Musculoskeletal: No Neurologic: No Reproductive: No Past Surgical History Coronary Artery Bypass Graft: Yes (stents x3 Cabg x3) Social History Alcohol Use: Yes Tobacco Use: Yes (1 PPD) Substance Use: Yes Allergies-Medications (Allergen,Severity, Reaction): Coded Allergies: Penicillin (Verified Allergy, Severe, 09/07/16) Reported Meds & Prescriptions Reported Meds & Active Scripts Active Reported Aspirin 81 Mg Chew 81 Mg CHEW DAILY Atorvastatin (Atorvastatin Calcium) 40 Mg Tab 40 Mg PO HS Atenolol 25 Mg Tab 25 Mg PO BID Review of Systems Except as stated in HPI: all other systems reviewed are Neg Psychiatric: Positive: Suicidal Ideations Physical Exam Narrative GENERAL: SKIN: Warm and dry. HEAD: Atraumatic. Normocephalic. EYES: Pupils equal and round. No scleral icterus. No injection or drainage. ENT: No nasal bleeding or discharge. Mucous membranes pink and moist. NECK: Trachea midline. No JVD. CARDIOVASCULAR: Regular rate and rhythm. RESPIRATORY: No accessory muscle use. Clear to auscultation. Breath sounds equal bilaterally. GASTROINTESTINAL: Abdomen soft, non-tender, nondistended. Hepatic and splenic margins not palpable. MUSCULOSKELETAL: Extremities without clubbing, cyanosis, or edema. No obvious deformities. NEUROLOGICAL: Awake and alert. No obvious cranial nerve deficits. Motor grossly within normal limits. Five out of 5 muscle strength in the arms and legs. Normal speech. PSYCHIATRIC: depressed mood Data Data Last Documented VS Vital Signs Date Time Temp Pulse Resp B/P Pulse Ox O2 Delivery O2 Flow Rate FiO2 09/07/16 15:49 98.5 82 15 134/86 100 Room Air Orders Complete Blood Count With Diff (09/07/16 15:38) Comprehensive Metabolic Panel (09/07/16 15:38) Thyroid Stimulating Hormone (09/07/16 15:38) Urinalysis - C+S If Indicated (09/07/16 15:38) Psych Screen (09/07/16 15:38) Drug Screen, Random Urine (09/07/16 15:38) Alcohol (Ethanol) (09/07/16 15:38) Salicylates (Aspirin) (09/07/16 15:38) Tylenol (Acetaminophen) (09/07/16 15:38) Electrocardiogram (09/07/16 15:48) Troponin I (09/07/16 15:48) Lipase (09/07/16 15:48) Lorazepam Inj (Ativan Inj) (09/07/16 16:30) Labs Laboratory Tests Test 09/07/16 09/07/16 15:55 16:40 Troponin I LESS THAN 0.02 NG/ML Lipase 193 U/L White Blood Count 9.5 TH/MM3 Red Blood Count 6.02 MIL/MM3 Hemoglobin 18.4 GM/DL Hematocrit 54.5 % Mean Corpuscular Volume 90.6 FL Mean Corpuscular Hemoglobin 30.6 PG Mean Corpuscular Hemoglobin 33.8 % Concent Red Cell Distribution Width 14.0 % Platelet Count 255 TH/MM3 Mean Platelet Volume 7.7 FL Neutrophils (%) (Auto) 62.3 % Lymphocytes (%) (Auto) 28.5 % Monocytes (%) (Auto) 7.7 % Eosinophils (%) (Auto) 0.2 % Basophils (%) (Auto) 1.3 % Neutrophils # (Auto) 6.0 TH/MM3 Lymphocytes # (Auto) 2.7 TH/MM3 Monocytes # (Auto) 0.7 TH/MM3 Eosinophils # (Auto) 0.0 TH/MM3 Basophils # (Auto) 0.1 TH/MM3 CBC Comment DIFF FINAL Differential Comment Urine Color YELLOW Urine Turbidity CLEAR Urine pH 6.0 Urine Specific [place] 1.011 Urine Protein 30 mg/dL Urine Glucose (UA) NEG mg/dL Urine Ketones NEG mg/dL Urine Occult Blood NEG Urine Nitrite NEG Urine Bilirubin NEG Urine Urobilinogen LESS THAN 2.0 MG/DL Urine Leukocyte Esterase TRACE Urine RBC LESS THAN 1 /hpf Urine WBC 5 /hpf Urine Hyaline Casts 1 /lpf Urine Mucus FEW /lpf Microscopic Urinalysis Comment CULT NOT INDICATED Sodium Level 137 MEQ/L Potassium Level 4.6 MEQ/L Chloride Level 102 MEQ/L Carbon Dioxide Level 23.7 MEQ/L Anion Gap 11 MEQ/L Blood Urea Nitrogen 5 MG/DL Creatinine 0.87 MG/DL Estimat Glomerular Filtration 91 ML/MIN Rate Random Glucose 124 MG/DL Calcium Level 8.7 MG/DL Total Bilirubin 0.4 MG/DL Aspartate Amino Transf 104 U/L (AST/SGOT) Alanine Aminotransferase 272 U/L (ALT/SGPT) Alkaline Phosphatase 77 U/L Total Protein 8.4 GM/DL Albumin 4.0 GM/DL Thyroid Stimulating Hormone 0.472 uIU/ML 3rd Gen Salicylates Level 3.1 MG/DL Urine Opiates Screen NEG Acetaminophen Level LESS THAN 2.0 MCG/ML Urine Barbiturates Screen NEG Urine Amphetamines Screen NEG Urine Benzodiazepines Screen NEG Urine Cocaine Screen NEG Urine Cannabinoids Screen NEG Ethyl Alcohol Level 267 MG/DL MDM Medical Decision Making Medical Screen Exam Complete: Yes Emergency Medical Condition: Yes Medical Record Reviewed: Yes Interpretation(s) NSR 78, NL INTERVALS, LVH, INVERTED T WAVES ON I/AVL, NO STEMI PATTERN Differential Diagnosis ETOH V OTHER INGESTIONS V CARDIAC ISSUES Narrative Course PATIENT WAS DEPRESSED BUT PLEASANT AND THANKFUL FOR THE HELP. FOUND TO HAVE MILD ELEV LFT'S WHICH IS C/W ETOH USE HOWEVER NOT HIGH ENOUGH TO BE CONCERNED WITH HEPATITIS. OVERALL PATIENT IS MEDICALLY CLEARED FOR PSYCH EVALUATION Diagnosis Primary Impression: ETOH ABUSE WITH SI (DESIR ACT) Jamie Chand MD Sep 07, 2016 15:41
[2016-09-07] MEDS ORDERED: ASPI81CH CHEW (15:48)
[2016-09-07 15:49] VITALS: BP 134/86; PULSE 82; RESP 15; TEMP 98.5; O2SAT 100
[2016-09-07] MEDS ORDERED: LORazepam 2 MG/ML VIAL IV PUSH ONE (16:30)
[2016-09-07 17:13] LABS: BLOOD, URINE NEG (NEG); COMMENT (UR) CULT NOT INDICATED; CULTURE IF INDICATED CULT NOT INDICATED; GLUCOSE,URINE NEG (NEG); HYALINE CAST, URINE 1 /lpf (RARE); KETONE, URINE NEG (NEG); MUCUS URINE FEW /lpf (OCC); NITRITE,URINE NEG (NEG); URINE COLOR YELLOW (YELLW/STRAW)
[2016-09-07 17:15] LABS: BASOPHIL # 0.1 TH/MM3 (0-0.2); BASOPHIL % 1.3 % (0.0-2.0); EOSINOPHIL % 0.2 % (0.0-4.0); HEMATOCRIT 54.5 % (39.0-51.0); HEMO FLAGS DIFF FINAL; LYMPH % 28.5 % (9.0-44.0); LYMPHOCYTE # 2.7 TH/MM3 (1.0-4.8); MEAN CELL VOLUME 90.6 FL (80.0-100.0); MEAN CORPUSCULAR HEMOGLOBIN 30.6 PG (27.0-34.0); MEAN CORPUSCULAR HGB CONC 33.8 % (32.0-36.0); MONO % 7.7 % (0.0-8.0); NEUT % 62.3 % (16.0-70.0); PLATELET COUNT 255 TH/MM3 (150-450); RED BLOOD COUNT 6.02 MIL/MM3 (4.50-5.90); WHITE BLOOD COUNT 9.5 TH/MM3 (4.0-11.0)
[2016-09-07 17:20] LABS: AMPHETAMINE, URINE NEG (NEG); BARBITURATES, URINE NEG (NEG); COCAINE, URINE NEG (NEG)
[2016-09-07 17:41] LABS: ALKALINE PHOSPHATASE 77 U/L (45-117); TOTAL BILIRUBIN ADULT 0.4 MG/DL (0.2-1.0)
[2016-09-07 17:50] LABS: ALT (GPT) 272 U/L (12-78); ANION GAP 11 MEQ/L (5-15); AST (GOT) 104 U/L (15-37); BICARBONATE 23.7 MEQ/L (21.0-32.0); BLOOD UREA NITROGEN 5 MG/DL (7-18); CHLORIDE 102 MEQ/L (98-107); GLOMERULAR FILTRATION RATE 91 ML/MIN (>89); POTASSIUM 4.6 MEQ/L (3.5-5.1); SODIUM (NA) 137 MEQ/L (136-145)
[2016-09-07 18:03] LABS: ACETAMINOPHEN LESS THAN 2.0 MCG/ML (10.0-30.0)
[2016-09-07 20:23] VITALS: BP 154/80; PULSE 92; RESP 16; O2SAT 99
[2016-09-07 20:31] VITALS: BP 124/80; PULSE 96; RESP 18; O2SAT 94
[2016-09-07] MEDS ORDERED: LORazepam 2 MG/ML VIAL IV PUSH PRN ×4 (22:00)
[2016-09-07] MEDS ORDERED: FLUMAZENIL 0.5 MG/5 ML VIAL IV PUSH PRN (22:00)
[2016-09-07] MEDS ORDERED: LORazepam 2 MG TAB PO PRN (22:00)
[2016-09-07] MEDS ORDERED: LORazepam 1 MG TAB PO PRN (22:00)
[2016-09-07 22:10] VITALS: BP 137/75; PULSE 100; RESP 18; TEMP 98.9; O2SAT 95
[2016-09-08 02:03] VITALS: BP 124/74; PULSE 102; RESP 18; TEMP 96.5; O2SAT 96
[2016-09-08 06:06] VITALS: BP 126/65; PULSE 84; RESP 17; TEMP 98.2; O2SAT 95
[2016-09-08] MEDS ORDERED: CHLO25CA9 PO (09:33)
--- NOTE | 2016-09-08 09:39 | PD ---
History of Present Illness Chief Complaint: Psychiatric Symptoms Time Seen by Provider: 09:10 Travel History International Travel<30 Days: No Contact w/Intl Traveler<30days: No Known affected area: No Legal Status Legal Status: Lee Act Lee Act Signed By: Desirae Santiago History of Present Illness: History of Present Illness HPI Patient is a 56 year old male with history of alcohol dependence who presents under a Lee Act alleging that while in a conversation with his he told her that he wanted to today.Patient with a history of alcohol dependence and has been on a 6 day drinking binge.patient presented to ED with BAl of 267. He had been sober for 9yrs. He was monitored in safe environment. and presented no behavioral concerns and no suicidality. This morning he is clinically sober. Speech is clear and logical. He is ambulating well with no gait impairment. At this time he is not showing any symptom of withdrawal. Speech is clear and logical. There is no psychosis and no denice. he tells me that he relapsed and called his for help. because he was afraid that he would have a seizure. He denies that he called to report that he had intention of harming himself. he does acknowledge saying " If I have to detox by myself I might as well ". He continues to deny any suicidal intent at this time. he is requesting discharge and wants to continue to work on his recovery. he has a sponsor and attends . he does not want to go to [facility] as he has been there in the past and did not find it to be useful to him. [facility] Past Medical History Anxiety: Yes Depression: Yes Heart Rhythm Problems: Yes (years ago atenolol started after stent placed) Cardiovascular Problems: Yes (cabg, htn) High Cholesterol: Yes Genitourinary: No Hypertension: Yes Musculoskeletal: No Neurologic: No Reproductive: No Influenza Vaccination: No Past Surgical History Coronary Artery Bypass Graft: Yes (stents x3 Cabg x3) Psychiatric History Psychiatric History Hx Psychiatric Treatment: PATIENT DENIES History of Inpatient Treatment: No Guns or firearms in home: No Social History male. Lives by himself. Hx Alcohol Use: Yes Hx Tobacco Use: Yes (1 PPD) Hx Substance Use: Yes Substance Use Type: Alcohol Hx of Substance Use Treatment: Yes Family Psychiatric History Negative Allergies-Medications (Allergen,Severity, Reaction): Coded Allergies: Penicillin (Verified Allergy, Severe, 09/07/16) Reported Meds & Prescriptions Reported Meds & Active Scripts Active Chlordiazepoxide HCl 25 Mg Capsule 25 Mg PO Q6HR PRN Reported Aspirin 81 Mg Chew 81 Mg CHEW DAILY Atorvastatin (Atorvastatin Calcium) 40 Mg Tab 40 Mg PO HS Atenolol 25 Mg Tab 25 Mg PO BID Review of Systems Except as stated in HPI: all other systems reviewed are Neg Exam Alert: Yes [place]: Person (ox4) Mood: Calm Affect: Appropriate Speech: Clear, Logical Eye Contact: Normal Memory Intact: Comment (not impaired) Hallucinations: Other (negtaive) Delusions: No Suicidal: Ideation (negative) Homicidal: Ideation (Negative) Insight/Judgement Fair . Not impaired. MDM Medical Decision Making Medical Record Reviewed: Yes Assessment/Plan 56 year old male with history of alcohol dependence who presents to ED under a BA. He alleges that he called his for help in obtaining detoxification and was placed under a BA. He denies any suicidal or homicidal ideation,. intent or plan. He is future oriented. has requested some Librium to help with detox symptoms once he is discharged. Does not meet BA criteria. Discharge. Continue with AA. Orders Complete Blood Count With Diff (09/07/16 15:38) Comprehensive Metabolic Panel (09/07/16 15:38) Thyroid Stimulating Hormone (09/07/16 15:38) Urinalysis - C+S If Indicated (09/07/16 15:38) Psych Screen (09/07/16 15:38) Drug Screen, Random Urine (09/07/16 15:38) Alcohol (Ethanol) (09/07/16 15:38) Salicylates (Aspirin) (09/07/16 15:38) Tylenol (Acetaminophen) (09/07/16 15:38) Electrocardiogram (09/07/16 15:48) Troponin I (09/07/16 15:48) Lipase (09/07/16 15:48) Lorazepam Inj (Ativan Inj) (09/07/16 16:30) Alcohol Withdrawal Asmt-Ciwa ONCE (09/07/16 21:59) Flumazenil Inj (Romazicon Inj) (09/07/16 22:00) Lorazepam (Ativan) (09/07/16 22:00) Lorazepam Inj (Ativan Inj) (09/07/16 22:00) Lorazepam (Ativan) (09/07/16 22:00) Lorazepam Inj (Ativan Inj) (09/07/16 22:00) Lorazepam Inj (Ativan Inj) (09/07/16 22:00) Lorazepam Inj (Ativan Inj) (09/07/16 22:00) Diet Regular Basic (09/08/16 Breakfast) Results Vital Signs Date Time Temp Pulse Resp B/P Pulse Ox O2 Delivery O2 Flow Rate FiO2 09/08/16 06:06 98.2 84 17 126/65 95 Room Air 09/08/16 02:03 96.5 102 18 124/74 96 Room Air 09/07/16 22:10 98.9 100 18 137/75 95 Room Air 09/07/16 20:31 96 18 124/80 94 Room Air 09/07/16 20:23 92 16 154/80 99 Room Air 09/07/16 15:49 98.5 82 15 134/86 100 Room Air Laboratory Tests Test 09/07/16 09/07/16 15:55 16:40 Troponin I LESS THAN 0.02 Lipase 193 White Blood Count 9.5 Red Blood Count 6.02 Hemoglobin 18.4 Hematocrit 54.5 Mean Corpuscular Volume 90.6 Mean Corpuscular Hemoglobin 30.6 Mean Corpuscular Hemoglobin 33.8 Concent Red Cell Distribution Width 14.0 Platelet Count 255 Mean Platelet Volume 7.7 Neutrophils (%) (Auto) 62.3 Lymphocytes (%) (Auto) 28.5 Monocytes (%) (Auto) 7.7 Eosinophils (%) (Auto) 0.2 Basophils (%) (Auto) 1.3 Neutrophils # (Auto) 6.0 Lymphocytes # (Auto) 2.7 Monocytes # (Auto) 0.7 Eosinophils # (Auto) 0.0 Basophils # (Auto) 0.1 CBC Comment DIFF FINAL Differential Comment Urine Color YELLOW Urine Turbidity CLEAR Urine pH 6.0 Urine Specific [place] 1.011 Urine Protein 30 Urine Glucose (UA) NEG Urine Ketones NEG Urine Occult Blood NEG Urine Nitrite NEG Urine Bilirubin NEG Urine Urobilinogen LESS THAN 2.0 Urine Leukocyte Esterase TRACE Urine RBC LESS THAN 1 Urine WBC 5 Urine Hyaline Casts 1 Urine Mucus FEW Microscopic Urinalysis Comment CULT NOT INDICATED Sodium Level 137 Potassium Level 4.6 Chloride Level 102 Carbon Dioxide Level 23.7 Anion Gap 11 Blood Urea Nitrogen 5 Creatinine 0.87 Estimat Glomerular Filtration 91 Rate Random Glucose 124 Calcium Level 8.7 Total Bilirubin 0.4 Aspartate Amino Transf 104 (AST/SGOT) Alanine Aminotransferase 272 (ALT/SGPT) Alkaline Phosphatase 77 Total Protein 8.4 Albumin 4.0 Thyroid Stimulating Hormone 0.472 3rd Gen Salicylates Level 3.1 Urine Opiates Screen NEG Acetaminophen Level LESS THAN 2.0 Urine Barbiturates Screen NEG Urine Amphetamines Screen NEG Urine Benzodiazepines Screen NEG Urine Cocaine Screen NEG Urine Cannabinoids Screen NEG Ethyl Alcohol Level 267 Diagnosis Primary Impression: Alcohol dependence Psychiatrically Cleared: Yes Med/ Other Pt Specific Info: Prescription(s) given Prescriptions Chlordiazepoxide HCl 25 Mg [id number] Mg PO Q6HR PRN (withdrawal) #6 Prov:Ashli Acevedo MD 09/08/16 Disposition: 01 DISCHARGE HOME Condition: Stable Problem Qualifiers Primary Impression: Alcohol dependence Qualified Code: F10.220 - Alcohol dependence with uncomplicated intoxication Coleen Elder Sep 08, 2016 09:39
--- NOTE | 2016-09-08 09:50 | EKG ---
Date Performed: 09/07/2016 Time Performed: 16:26:18 PTAGE: 56 years EKG: Sinus rhythm NONSPECIFIC T-WAVE ABNORMALITY BORDERLINE ECG PREVIOUS TRACING : 07/23/2016 22.30 DOCTOR: Lan Burnett Interpretating Date/Time 09/08/2016 09:50:07
== END 2016-09-08 10:10 | disposition home or self-care (01) ==
LOC: NEPC 15:32 → NEPJ 09-08 10:10
DX: F10.220 Alcohol dependence with intoxication, uncomplicated (principal); I10 Essential (primary) hypertension; E78.00 Pure hypercholesterolemia, unspecified; F17.210 Nicotine dependence, cigarettes, uncomplicated; Z91.19 Patient's noncompliance with other medical treatment and regimen
CPT/HCPCS: 80053; 80307; 81001; 83690; 84443; 84484; 85025; 93005; 96374; 99284; J2060

== ENCOUNTER 2016-09-08 23:31 | Observation (INO) | payer SELFPAY ==
[~2016-09-08 23:31] MED LIST changes: -ASPI1TAB69 PO; +ASPI81CH CHEW; +CHLO25CA9 PO; -CIPR500T2 PO; -FOLI1TAB4 PO; -LORA-392 PO; -THERM PO; -VITA100T2 PO
[2016-09-08 23:39] VITALS: BP 117/56; PULSE 90; RESP 18; TEMP 97.8; O2SAT 96
[2016-09-09] VITALS (8 sets, daily range): BP systolic 94–125; BP diastolic 51–82; PULSE 68–94; RESP 15–18; TEMP 97.9–98; O2SAT 93–97
--- NOTE | 2016-09-09 00:52 | PD ---
HPI Chief Complaint: Chest Pain Time Seen by Provider: 00:16 Travel History International Travel<30 days: No Contact w/Intl Traveler<30days: No Traveled to known affect area: No History of Present Illness HPI This is a 56-year-old male patient with a past medical history of coronary artery disease with status post CABG hyperlipidemia who is every day consumer of alcohol resents with a complaint of intermittent midsternal chest pain with associated shortness of breath. She was in the ER for evaluation earlier and discharged home with instructions to obtain detoxification from alcoholic substance. He states he was unable to obtain detox intervention so return to the ER because of continuous chest pain. She denies nausea vomiting diaphoresis. He also denies use of illicit drug substances. PFSH Past Medical History Anxiety: Yes Depression: Yes Heart Rhythm Problems: Yes (years ago atenolol started after stent placed) Cardiovascular Problems: Yes (cabg, htn) High Cholesterol: Yes Diminished Hearing: No Genitourinary: No Hypertension: Yes Musculoskeletal: No Neurologic: No Reproductive: No Past Surgical History Coronary Artery Bypass Graft: Yes (stents x3 Cabg x3) Social History Alcohol Use: Yes ('1 BOTTLE LIQUOR A DAY') Tobacco Use: Yes (1 PPD) Substance Use: Yes Allergies-Medications (Allergen,Severity, Reaction): Coded Allergies: Penicillin (Verified Allergy, Severe, 09/08/16) Reported Meds & Prescriptions Reported Meds & Active Scripts Active Chlordiazepoxide HCl 25 Mg Capsule 25 Mg PO Q6HR PRN Reported Aspirin 81 Mg Chew 81 Mg CHEW DAILY Atorvastatin (Atorvastatin Calcium) 40 Mg Tab 40 Mg PO HS Atenolol 25 Mg Tab 25 Mg PO BID Review of Systems ROS Limitations: Clinical Condition Data Data Last Documented VS Vital Signs Date Time Temp Pulse Resp B/P Pulse Ox O2 Delivery O2 Flow Rate FiO2 09/08/16 23:48 90 18 95 09/08/16 23:39 97.8 117/56 Orders Complete Blood Count With Diff (09/09/16 00:30) Comprehensive Metabolic Panel (09/09/16 00:30) Prothrombin Time / Inr (Pt) (09/09/16 00:30) Electrocardiogram (09/09/16 ) Magnesium (Mg) (09/09/16 00:30) Drug Screen, Random Urine (09/09/16 00:30) Alcohol (Ethanol) (09/09/16 00:30) Nitroglycerin Sl (Nitrostat Sl) (09/09/16 00:30) Creatine Kinase (Cpk) (09/09/16 00:35) Ckmb (Isoenzyme) Profile (09/09/16 00:35) Troponin I (09/09/16 00:35) MDM Medical Decision Making Interpretation(s) EKG shows normal sinus rhythm T-wave inversion in anterior leads LVH Frances Moreno MD Sep 09, 2016 00:52
[2016-09-09] MEDS ORDERED: ONDANSETRON HCL 4 MG/2 ML VIAL IV PUSH ONE (01:00)
[2016-09-09] MEDS ORDERED: MORPHINE SULFATE 4 MG/ML INJ IV PUSH ONE ×2 (01:00→09:30)
[2016-09-09 01:05] LABS: AUTOMATED NEUTROPHIL # 3.7 TH/MM3 (1.8-7.7); BASOPHIL # 0.1 TH/MM3 (0-0.2); BASOPHIL % 1.3 % (0.0-2.0); EOSINOPHIL # 0.1 TH/MM3 (0-0.4); EOSINOPHIL % 1.3 % (0.0-4.0); HEMATOCRIT 46.8 % (39.0-51.0); HEMO FLAGS DIFF FINAL; LYMPH % 36.5 % (9.0-44.0); LYMPHOCYTE # 2.8 TH/MM3 (1.0-4.8); MEAN CELL VOLUME 89.4 FL (80.0-100.0); MEAN CORPUSCULAR HEMOGLOBIN 30.5 PG (27.0-34.0); MEAN CORPUSCULAR HGB CONC 34.2 % (32.0-36.0); MONO % 12.2 % (0.0-8.0); NEUT % 48.7 % (16.0-70.0); PLATELET COUNT 223 TH/MM3 (150-450); RED BLOOD COUNT 5.23 MIL/MM3 (4.50-5.90); WHITE BLOOD COUNT 7.7 TH/MM3 (4.0-11.0)
[2016-09-09 01:16] LABS: INTERNATIONAL NORMALIZED RATIO 0.9 RATIO; PROTHROMBIN TIME - PATIENT 10.3 SEC (9.8-11.6)
[2016-09-09] MEDS: NITROGLYCERIN 0.4 MG SL 25 TABS/BTL SL PRN ×2 (01:31→01:58)
[2016-09-09 01:57] LABS: ALKALINE PHOSPHATASE 68 U/L (45-117); ALT (GPT) 184 U/L (12-78); ANION GAP 10 MEQ/L (5-15); AST (GOT) 70 U/L (15-37); BICARBONATE 27.4 MEQ/L (21.0-32.0); BLOOD UREA NITROGEN 8 MG/DL (7-18); CHLORIDE 103 MEQ/L (98-107); CREATINE KINASE 136 U/L (39-308); GLOMERULAR FILTRATION RATE 107 ML/MIN (>89); MAGNESIUM 1.9 MG/DL (1.5-2.5); POTASSIUM 3.7 MEQ/L (3.5-5.1); SODIUM (NA) 140 MEQ/L (136-145); TOTAL BILIRUBIN ADULT 0.4 MG/DL (0.2-1.0)
[2016-09-09 02:06] LABS: AMPHETAMINE, URINE NEG (NEG); BARBITURATES, URINE NEG (NEG); COCAINE, URINE NEG (NEG)
[2016-09-09 02:15] LABS: CKMB 1.1 NG/ML (0.5-3.6)
--- NOTE | 2016-09-09 05:13 | RADRPT ---
EXAM DATE/TIME: 09/09/2016 04:28 [facility] COMPARISON: CHEST SINGLE AP, July 23, 2016, 17:22. INDICATIONS : Chest pain. MEDICAL HISTORY : None. SURGICAL HISTORY : CABG. ENCOUNTER: Initial ACUITY: 1 day PAIN SCORE: 7/10 LOCATION: Bilateral chest FINDINGS: A single view of the chest demonstrates the lungs to be symmetrically aerated without evidence of mas s, infiltrate or effusion. Status post CABG. The cardiomediastinal contours are unremarkable. Osseou s structures are intact. CONCLUSION: No acute disease. Ezra Colvin MD on September 09, 2016 at 5:10 Board Certified Radiologist. This report was verified electronically.
[2016-09-09] MEDS ORDERED: SODIUM CHLORIDE 0.9% FLUSH 10 ML FLUSH IV FLUSH PRN (05:45)
[2016-09-09 06:38] LABS: CREATINE KINASE 161 U/L (39-308)
[2016-09-09 06:51] LABS: CKMB 1.2 NG/ML (0.5-3.6)
--- NOTE | 2016-09-09 08:43 | HHI.HP ---
HPI Primary Care Physician No Primary Care Physician Chief Complaint Chest pressure History of Present Illness 56-year-old male with history of coronary artery disease, CABG 3, 3 cardiac stent, hyperlipidemia, hypertension, and alcohol dependence presents to the emergency room for further evaluation. Onset 2 days ago. Location substernal. Characterized as stabbing in the center of his chest then decreasing to a dull aching pressure. Nonexertional component. Associated symptoms included nausea, vomiting. No shortness of breath or diaphoresis. Precipitating factors is alcohol withdrawal voluntarily. Endorses he quit drinking for 13 years although in the last few months has started drinking again. 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 Relieving factors morphine helped somewhat. Nitroglycerin did not help at all. Endorses similar chest pressure prior to CABG. Review of Systems General: No fatigue,weakness, fever, chills, recent illness. Generally has not felt well over the last few months since relapsing with alcohol. HEENT: No BOWLES, no vision changes, no nasal congestion or drainage, no dysphasia CV: As stated above. Currently his chest discomfort 08/14. RESP: No SOB, cough, wheeze, recent URI. No history of asthma. GI: Endorses intermittent nausea with DTs. No current nausea, vomiting, bowel changes, diarrhea, constipation, pain, distention, melena, or blood in the stool. 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 Last seizure "years ago." Denies ever following with a neurologist. No difficulty with balance, LOC, motor/sensory deficits. PSYCH: No anxiety, depression, or suicidal ideation. Reports situational stress and relapsing from alcohol in May. SKIN: No rashes, no concerning lesions Past Family Social History Allergies: Coded Allergies: Penicillin (Verified Allergy, Severe, 09/08/16) Past Medical History CAD, 3 cardiac stents, hyperlipidemia, hypertension, seizures, panic attacks, anxiety, depression, EtOH abuse Past Surgical History CABG x 37 years ago. Reported Medications Active Chlordiazepoxide HCl 25 Mg Capsule 25 Mg PO Q6HR PRN Reported Aspirin 81 Mg Chew 81 Mg CHEW DAILY Atorvastatin (Atorvastatin Calcium) 40 Mg Tab 40 Mg PO HS Atenolol 25 Mg Tab 25 Mg PO BID Active Ordered Medications Current Medications Medications (Trade) Dose Ordered Sig/Edgardo Route Start Time Stop Time Status Last Admin (Nitrostat Sl) 0.4 mg Q5M PRN SL 09/09/16 00:30 09/09/16 01:31 (NS Flush) 2 ml UNSCH PRN IV FLUSH 09/09/16 05:45 (NS Flush) 2 ml BID IV FLUSH 09/09/16 09:00 Family History 3 brothers CABGs in their early 40s Social History Known coronary artery disease, hypertension, and hyperlipidemia. No known diabetes. Current smoker 1 pack daily. Alcoholfifth of vodka daily. Denies any recreational drugs. 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 . Past cardiac testing 06/02/2016 Lexiscannone ischemia, EF 60% One stent in bypass graft, 2 stents (LAD, circumflex) Does not follow with a ring facer or a PCP. Physical Exam Vital Signs Vital Signs Date Time Temp Pulse Resp B/P Pulse Ox O2 Delivery O2 Flow Rate FiO2 09/09/16 07:53 98.0 68 15 123/81 97 09/09/16 07:00 71 16 104/61 94 Room Air 09/09/16 05:38 93 21 09/09/16 04:28 68 18 110/79 93 09/09/16 03:38 71 18 94/51 96 09/09/16 02:11 80 18 98/71 95 09/08/16 23:48 90 18 95 09/08/16 23:39 97.8 90 18 117/56 96 Physical Exam GENERAL: Alert WN, WD, NAD, pleasant, mildly anxious male HEAD: NC, AT EYES: Sclera clear, conjunctiva without injection, pupils equal and round ENT: Mucous membranes pink and moist, no nasal discharge or bleeding NECK: Supple, no masses, trachea midline CV: RRR, without murmur, rub, gallop, no JVD, S1-S2 no S3-S4. No carotid or femoral bruits RESP: Clear lungs throughout bilateral, no crackles, wheeze, rhonchi, symmetrical chest rise, nonlabored, able to speak in full sentences ABD: Soft, NT, ND, no masses, positive bowel tones, no hepatomegaly BACK: No CVAT, no scoliosis EXT: Pulses +24, no dependent edema MS: Normal tone 4 extremities, nontender, no obvious deformities, full range of motion NEURO: CN II through CN XII grossly intact, motor strength 5/5, gait WNL, faint bilateral hand tremors PSYCH: A+O 3, pleasant affect, appropriate speech, appropriate mood and affect , insight and judgment SKIN: Normal turgor, normal texture, no lesions, no rashes, brisk cap refill, even hair distribution, mid chest surgical scar Laboratory Laboratory Tests Test 09/09/16 09/09/16 09/09/16 00:39 01:26 05:59 White Blood Count 7.7 Red Blood Count 5.23 Hemoglobin 16.0 Hematocrit 46.8 Mean Corpuscular Volume 89.4 Mean Corpuscular Hemoglobin 30.5 Mean Corpuscular Hemoglobin 34.2 Concent Red Cell Distribution Width 14.0 Platelet Count 223 Mean Platelet Volume 7.7 Neutrophils (%) (Auto) 48.7 Lymphocytes (%) (Auto) 36.5 Monocytes (%) (Auto) 12.2 Eosinophils (%) (Auto) 1.3 Basophils (%) (Auto) 1.3 Neutrophils # (Auto) 3.7 Lymphocytes # (Auto) 2.8 Monocytes # (Auto) 0.9 Eosinophils # (Auto) 0.1 Basophils # (Auto) 0.1 CBC Comment DIFF FINAL Differential Comment Prothrombin Time 10.3 Prothromb Time International 0.9 Ratio Sodium Level 140 Potassium Level 3.7 Chloride Level 103 Carbon Dioxide Level 27.4 Anion Gap 10 Blood Urea Nitrogen 8 Creatinine 0.76 Estimat Glomerular Filtration 107 Rate Random Glucose 99 Calcium Level 8.1 Magnesium Level 1.9 Total Bilirubin 0.4 Aspartate Amino Transf 70 (AST/SGOT) Alanine Aminotransferase 184 (ALT/SGPT) Alkaline Phosphatase 68 Total Creatine Kinase 136 161 Creatine Kinase MB 1.1 1.2 Troponin I LESS THAN 0.02 LESS THAN 0.02 Total Protein 7.1 Albumin 3.4 Ethyl Alcohol Level 244 Urine Opiates Screen NEG Urine Barbiturates Screen NEG Urine Amphetamines Screen NEG Urine Benzodiazepines Screen POS Urine Cocaine Screen NEG Urine Cannabinoids Screen NEG Result Diagram: 09/09/16 0039 09/09/16 0039 Imaging Last Impressions Chest X-Ray 09/09/16 0000 Signed Impressions: Service Date/Time: September 04:28 - CONCLUSION: No acute disease. Ezra Colvin MD Course EKG Sinus rhythm, normal axis, nonspecific T-wave changes Assessment and Plan Assessment and Plan #1 Chest painadmitted to chest pain center. Will rule out with serial EKGs, cardiac enzymes, and will be seen and evaluated by Dr. King. Most likely will not proceed with any further testing due to recent unremarkable nuclear scan. Chest discomfort most likely related to alcohol withdrawal. #2 History of CAD-continue atenolol, aspirin, atorvastatin. Strongly encouraged him to establish with a ring facer. #3 HTN-continue atenolol, continue to monitor #4 Anxiety-Clonapam 0.5mg 1 dose now. #5 ETOH abuseencouraged him to proceed with voluntary detox with [facility]. Librium prescription given yesterday by emergency room physician. Case management consult placed. Edwige Clifford Sep 09, 2016 08:43
[2016-09-09] MEDS ORDERED: ONDANSETRON HCL 4 MG/2 ML VIAL IV PRN (08:45)
[2016-09-09] MEDS ORDERED: ACETAMINOPHEN 500 MG CPLT PO PRN (08:45)
[2016-09-09] MEDS ORDERED: ASPIRIN 325 MG TAB PO SCH (09:00)
[2016-09-09] MEDS ORDERED: SODIUM CHLORIDE 0.9% FLUSH 10 ML FLUSH IV FLUSH SCH (09:00)
[2016-09-09 09:28] LABS: CREATINE KINASE 113 U/L (39-308)
[2016-09-09] MEDS ORDERED: ATENOLOL 25 MG TAB PO SCH (09:30)
[2016-09-09] MEDS ORDERED: clonazePAM 0.5 MG TAB PO ONE (09:30)
--- NOTE | 2016-09-09 09:30 | HHI.HP ---
HPI Primary Care Physician No Primary Care Physician Past Family Social History Allergies: Coded Allergies: Penicillin (Verified Allergy, Severe, 09/08/16) Reported Medications Reported Meds & Active Scripts Active Chlordiazepoxide HCl 25 Mg Capsule 25 Mg PO Q6HR PRN Reported Aspirin 81 Mg Chew 81 Mg CHEW DAILY Atorvastatin (Atorvastatin Calcium) 40 Mg Tab 40 Mg PO HS Atenolol 25 Mg Tab 25 Mg PO BID Active Ordered Medications Current Medications Medications (Trade) Dose Ordered Sig/Edgardo Route Start Time Stop Time Status Last Admin (Nitrostat Sl) 0.4 mg Q5M PRN SL 09/09/16 00:30 09/09/16 01:31 (NS Flush) 2 ml UNSCH PRN IV FLUSH 09/09/16 05:45 (NS Flush) 2 ml BID IV FLUSH 09/09/16 09:00 (Tylenol) 500 mg Q4H PRN PO 09/09/16 08:45 (Zofran Inj) 4 mg Q6H PRN IV 09/09/16 08:45 (Aspirin) 325 mg DAILY PO 09/09/16 09:00 Physical Exam Vital Signs Vital Signs Date Time Temp Pulse Resp B/P Pulse Ox O2 Delivery O2 Flow Rate FiO2 09/09/16 07:53 98.0 68 15 123/81 97 09/09/16 07:00 71 16 104/61 94 Room Air 09/09/16 05:38 93 21 09/09/16 04:28 68 18 110/79 93 09/09/16 03:38 71 18 94/51 96 09/09/16 02:11 80 18 98/71 95 09/08/16 23:48 90 18 95 09/08/16 23:39 97.8 90 18 117/56 96 Laboratory Laboratory Tests Test 09/09/16 09/09/16 09/09/16 00:39 01:26 05:59 White Blood Count 7.7 Red Blood Count 5.23 Hemoglobin 16.0 Hematocrit 46.8 Mean Corpuscular Volume 89.4 Mean Corpuscular Hemoglobin 30.5 Mean Corpuscular Hemoglobin 34.2 Concent Red Cell Distribution Width 14.0 Platelet Count 223 Mean Platelet Volume 7.7 Neutrophils (%) (Auto) 48.7 Lymphocytes (%) (Auto) 36.5 Monocytes (%) (Auto) 12.2 Eosinophils (%) (Auto) 1.3 Basophils (%) (Auto) 1.3 Neutrophils # (Auto) 3.7 Lymphocytes # (Auto) 2.8 Monocytes # (Auto) 0.9 Eosinophils # (Auto) 0.1 Basophils # (Auto) 0.1 CBC Comment DIFF FINAL Differential Comment Prothrombin Time 10.3 Prothromb Time International 0.9 Ratio Sodium Level 140 Potassium Level 3.7 Chloride Level 103 Carbon Dioxide Level 27.4 Anion Gap 10 Blood Urea Nitrogen 8 Creatinine 0.76 Estimat Glomerular Filtration 107 Rate Random Glucose 99 Calcium Level 8.1 Magnesium Level 1.9 Total Bilirubin 0.4 Aspartate Amino Transf 70 (AST/SGOT) Alanine Aminotransferase 184 (ALT/SGPT) Alkaline Phosphatase 68 Total Creatine Kinase 136 161 Creatine Kinase MB 1.1 1.2 Troponin I LESS THAN 0.02 LESS THAN 0.02 Total Protein 7.1 Albumin 3.4 Ethyl Alcohol Level 244 Urine Opiates Screen NEG Urine Barbiturates Screen NEG Urine Amphetamines Screen NEG Urine Benzodiazepines Screen POS Urine Cocaine Screen NEG Urine Cannabinoids Screen NEG Result Diagram: 09/09/16 0039 09/09/16 0039 Assessment and Plan Assessment and Plan Patient seen and examined with 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 History as detailed above. PE: completed together CV: Healed sternotomy, RST without GRM ABD: Lower liver margin palpable, no bruits Fem: Pulses decreased Ext: Pulses decreased, stasis changes mild A: Known CAD S/P CABG and Stents x 3 (LAD and CX known) Atypical CP Alcoholism P: Recent nuclear stress test negative. Will not repeat. R/O and disch to F/U with PCP needs treatment for alcoholism Stabilize and refer to Fernando Saunders MD Sep 09, 2016 09:30
[2016-09-09 09:41] LABS: CKMB 1.3 NG/ML (0.5-3.6)
--- NOTE | 2016-09-09 11:20 | HHI.DCPOC ---
Discharge Care Plan Diagnosis: (1) Atypical chest pain (2) Alcohol dependence (3) Tobacco abuse (4) Hx of coronary artery disease Goals to Promote Your Health * To prevent worsening of your condition and complications * To maintain your health at the optimal level Directions to Meet Your Goals Take your medications as prescribed Follow your dietary instruction Follow activity as directed Keep your appointments as scheduled Take your immunizations and boosters as scheduled If your symptoms worsen call your PCP, if no PCP go to Urgent Care Center or Emergency Room Smoking is Dangerous to Your Health. Avoid second hand smoke Call the 24-hour hour crisis hotline for domestic abuse at Edwige Clifford Sep 09, 2016 11:20
--- NOTE | 2016-09-10 13:08 | EKG ---
Date Performed: 09/09/2016 Time Performed: 09:39:31 PTAGE: 56 years EKG: Sinus rhythm NORMAL ECG PREVIOUS TRACING : 09/09/2016 05.59 Since previous tracing, no significant change noted DOCTOR: Davian Bustos Interpretating Date/Time 09/10/2016 13:07:06
--- NOTE | 2016-09-10 13:08 | EKG ---
Date Performed: 09/09/2016 Time Performed: 05:59:24 PTAGE: 56 years EKG: Sinus rhythm NONSPECIFIC T-WAVE ABNORMALITY BORDERLINE ECG PREVIOUS TRACING : 09/08/2016 23.35 Since previous tracing, no significant change noted DOCTOR: Davian Bustos Interpretating Date/Time 09/10/2016 13:07:54
--- NOTE | 2016-09-10 13:10 | EKG ---
Date Performed: 09/08/2016 Time Performed: 23:35:16 PTAGE: 56 years EKG: Sinus rhythm POSSIBLE LEFT ATRIAL ENLARGEMENT NONSPECIFIC ST & T-WAVE ABNORMALITY BORDERLINE ECG PREVIOUS TRACING : 09/07/2016 16.26 Since previous tracing, ST-T changes are new DOCTOR: Davian Bustos Interpretating Date/Time 09/10/2016 13:09:23
== END 2016-09-09 12:02 | disposition home or self-care (01) ==
LOC: NEPC 23:31 → NEDA 09-09 06:19 → NEPHCDU 09-09 07:38
PROVIDERS: ADMIT Internal Medicine Cardiovascular Disease; ATTEND Internal Medicine Cardiovascular Disease
DX: R07.89 Other chest pain (principal); F10.20 Alcohol dependence, uncomplicated; R06.02 Shortness of breath; I25.10 Atherosclerotic heart disease of native coronary artery without angina pectoris; Z95.1 Presence of aortocoronary bypass graft; E78.5 Hyperlipidemia, unspecified; I10 Essential (primary) hypertension; F32.9 Major depressive disorder, single episode, unspecified; F17.200 Nicotine dependence, unspecified, uncomplicated; F41.9 Anxiety disorder, unspecified; Z79.899 Other long term (current) drug therapy; Z79.82 Long term (current) use of aspirin; Z98.61 Coronary angioplasty status
CPT/HCPCS: 71010; 80053; 80307; 82550; 82552; 83735; 84484; 85025; 85610; 93005; J2270; J2405

== ENCOUNTER 2016-11-09 20:17 | Observation (INO) | payer OTHER ==
[~2016-11-09] VITALS: Ht 188 cm; Wt 110.0 kg
[2016-11-09 20:20] VITALS: BP 132/80; PULSE 101; RESP 18; TEMP 98.4; O2SAT 95
[2016-11-09 20:29] VITALS: RESP 18; O2SAT 95
[2016-11-09] MEDS ORDERED: ASPIRIN 81 MG CHEW TAB CHEW ONE (20:30)
[2016-11-09] MEDS ORDERED: NITROGLYCERIN 2% OINT 1 GM PACKET TOPICAL ONE (20:30)
[2016-11-09] MEDS ORDERED: PANTOPRAZOLE SODIUM 40 MG VIAL IV PUSH ONE (20:30)
[2016-11-09] MEDS ORDERED: SODIUM CHLORID 0.9% 500 ML INJ 500 ML IV ONE (20:30)
[2016-11-09] MEDS ORDERED: NITROGLYCERIN 0.4 MG SL 25 TABS/BTL SL ONE (20:30)
--- NOTE | 2016-11-09 20:32 | PD ---
HPI Chief Complaint: Cardiac Complaint Time Seen by Provider: 20:24 Travel History International Travel<30 days: No Contact w/Intl Traveler<30days: No Traveled to known affect area: No History of Present Illness HPI The patient is a 56 year old male who presents to the [facility] emergency department with a history of being Lee acted prior to arrival. According to ambulance services they were called in to evaluate the patient for possible alcohol-related poisoning. The patient reports that he has been drinking copious amounts of vodka all day every day for the last 4 days. The patient additionally for the last 3 days has had nausea and vomiting intermittently. The patient reports that he had been clean and sober for 13 years and recently relapsed a few months ago which caused depression. The patient on arrival of ambulance services reported having chest pressure that is an 8 out of 10 in severity. The patient has a known history of coronary artery disease with coronary artery bypass grafting of 3 vessels 8 years ago and 3 stents placed since then, the last stent was placed 3 years ago. 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 He reports that he lost his insurance previously and was not following up on a regular basis. He does report that he is taking atenolol and aspirin daily, however he did not take his aspirin today. The patient reports having associated nausea and vomiting with this chest pain, diaphoresis, shortness of breath. The patient prior to arrival was noted to have ST depression in V2 V3 V4 and V5 V6, therefore he was called as a cardiac alert prior to arrival. No aspirin was administered prior to arrival. The patient was given Zofran 4 mg IV, nitroglycerin sublingual 2. On review of systems otherwise, the patient denies any recent fevers, cough, congestion, neck pain, abdominal pain, diarrhea, urinary symptoms, or neurologic symptoms. PFS Past Medical History Narrative Medical The patient's past medical history is significant for coronary artery disease, anxiety, alcohol abuse, hyperlipidemia, hypertension Anxiety: Yes Depression: Yes Heart Rhythm Problems: No Cardiac Catheterization: Yes (X3 STENTS) Cardiovascular Problems: Yes High Cholesterol: Yes Congestive Heart Failure: No Diabetes: No Diminished Hearing: No Genitourinary: No Hypertension: Yes Musculoskeletal: No Neurologic: No Reproductive: No Tetanus Vaccination: Unknown Influenza Vaccination: No Past Surgical History Narrative Surgical The patient's past surgical history is significant for coronary artery bypass grafting of 3 vessels 8 years ago, cardiac catheterization with stent placement 3, his last cardiac catheterization with stent placement was 3 years ago. Coronary Artery Bypass Graft: Yes (2009) Other Surgery: No Family History Family Myocardial Infarction: Yes Social History Alcohol Use: Yes (the patient reports that he is drinking approximately 5 bottles of dark over the last 4 days) Tobacco Use: Yes (1 PPD) Substance Use: No Allergies-Medications (Allergen,Severity, Reaction): Coded Allergies: penicillin G (Unverified Allergy, Severe, 11/09/16) Reported Meds & Prescriptions Reported Meds & Active Scripts Active Chlordiazepoxide HCl 25 Mg Capsule 25 Mg PO Q6HR PRN Reported Aspirin 81 Mg Chew 81 Mg CHEW DAILY Atorvastatin (Atorvastatin Calcium) 40 Mg Tab 40 Mg PO HS Atenolol 25 Mg Tab 25 Mg PO BID Review of Systems Except as stated in HPI: all other systems reviewed are Neg General / Constitutional: No: Fever Eyes: No: Visual changes HENT: No: Headaches Cardiovascular: Positive: Chest Pain or Discomfort, Diaphoresis, Dyspnea on exertion Respiratory: Positive: Shortness of Breath Gastrointestinal: Positive: Nausea, Vomiting, No: Abdominal Pain Genitourinary: No: Dysuria Musculoskeletal: No: Pain Skin: No Rash Neurologic: No: Weakness, Focal Abnormalities, Headache, Change in Mentation, Slurred Speech, Sensory Disturbance Psychiatric: Positive: Anxiety, Substance Abuse, No: Depression Endocrine: No: Polydipsia Hematologic/Lymphatic: No: Easy Bruising Physical Exam Narrative General: The patient is a well-developed well-nourished male in no acute distress. Head and Neck exam: Head is normocephalic atraumatic. Eyes: EOMI, pupils are equal round and reactive to light. Nose: Midline septum with pink mucous membranes Mouth: Dentition unremarkable. Moist mucus membranes. Posterior oropharynx is not erythematous. No tonsillar hypertrophy. Uvula midline. Airway patent. Neck: No palpable lymphadenopathy. No nuchal rigidity. No thyromegaly. Cardiovascular: Regular rate and rhythm without murmurs, gallops, or rubs. Lungs: Clear to auscultation bilaterally. No wheezes, rhonchi, or rales. Abdomen: Soft, without tenderness to palpation in all 4 quadrants of the abdomen. No guarding, rebound, or rigidity. Normal bowel sounds are audible. No tenderness on palpation of McBurney's point. Extremities: No clubbing, cyanosis, or edema. 2+ pulses in all 4 extremities. No calf tenderness on palpation. The patient does have scattered varicosities noted. No palpable cords. Back: No spinous process tenderness to palpation. No costovertebral angle tenderness to palpation. Neurologic Exam: Grossly nonfocal. Skin Exam: No rash noted. Intact skin that is warm and dry. Data Data Last Documented VS Vital Signs Date Time Temp Pulse Resp B/P (MAP) Pulse Ox O2 Delivery O2 Flow Rate FiO2 11/09/16 22:01 102 18 98/59 (72) 96 Room Air 11/09/16 20:29 2.00 11/09/16 20:20 98.4 Orders Orders Electrocardiogram (11/09/16 20:24) Complete Blood Count With Diff (11/09/16 20:24) Comprehensive Metabolic Panel (11/09/16 20:24) Creatine Kinase (Cpk) (11/09/16 20:24) Ckmb (Isoenzyme) Profile (11/09/16 20:24) Troponin I (11/09/16 20:24) B-Type Natriuretic Peptide (11/09/16 20:24) Prothrombin Time / Inr (Pt) (11/09/16 20:24) Act Partial Throm Time (Ptt) (11/09/16 20:24) Lipase (11/09/16 20:24) Urinalysis - C+S If Indicated (11/09/16 20:24) Magnesium (Mg) (11/09/16 20:24) Thyroid Stimulating Hormone (11/09/16 20:24) Chest, Single Ap (11/09/16 20:24) Iv Access Insert/Monitor (11/09/16 20:24) Ecg Monitoring (11/09/16 20:24) Oxygen Administration (11/09/16 20:24) Oximetry (11/09/16 20:24) Drug Screen, Random Urine (11/09/16 20:24) Alcohol (Ethanol) (11/09/16 20:24) Salicylates (Aspirin) (11/09/16 20:24) Tylenol (Acetaminophen) (11/09/16 20:24) Aspirin Chew (Aspirin Chew) (11/09/16 20:30) Pantoprazole Inj (Protonix Inj) (11/09/16 20:30) Nitroglycerin Sl (Nitrostat Sl) (11/09/16 20:30) Nitroglycerin 2% Oint (Nitroglycerin 2% (11/09/16 20:30) Sodium Chlorid 0.9% 500 Ml Inj (Ns 500 M (11/09/16 20:30) Urine Culture (11/09/16 20:35) CKMB (11/09/16 20:30) CKMB% (11/09/16 20:30) Prochlorperazine Inj (Compazine Inj) (11/09/16 22:00) Potassium Chloride (Kcl) (11/09/16 22:15) ^ Sitter (11/09/16 22:04) Labs Laboratory Tests Test 11/09/16 20:30 11/09/16 20:35 White Blood Count 9.2 TH/MM3 Red Blood Count 5.74 MIL/MM3 Hemoglobin 17.5 GM/DL Hematocrit 52.3 % Mean Corpuscular Volume 91.1 FL Mean Corpuscular Hemoglobin 30.5 PG Mean Corpuscular Hemoglobin Concent 33.5 % Red Cell Distribution Width 14.4 % Platelet Count 263 TH/MM3 Mean Platelet Volume 6.8 FL Neutrophils (%) (Auto) 78.6 % Lymphocytes (%) (Auto) 15.1 % Monocytes (%) (Auto) 5.9 % Eosinophils (%) (Auto) 0.0 % Basophils (%) (Auto) 0.4 % Neutrophils # (Auto) 7.2 TH/MM3 Lymphocytes # (Auto) 1.4 TH/MM3 Monocytes # (Auto) 0.5 TH/MM3 Eosinophils # (Auto) 0.0 TH/MM3 Basophils # (Auto) 0.0 TH/MM3 CBC Comment DIFF FINAL Differential Comment Prothrombin Time 11.4 SEC Prothromb Time International Ratio 1.0 RATIO Activated Partial Thromboplast Time 24.0 SEC Blood Urea Nitrogen 3 MG/DL Creatinine 0.76 MG/DL Random Glucose 168 MG/DL Total Protein 7.2 GM/DL Albumin 3.5 GM/DL Calcium Level 8.1 MG/DL Magnesium Level 1.6 MG/DL Alkaline Phosphatase 65 U/L Aspartate Amino Transf (AST/SGOT) 39 U/L Alanine Aminotransferase (ALT/SGPT) 98 U/L Total Bilirubin 0.5 MG/DL Sodium Level 138 MEQ/L Potassium Level 3.3 MEQ/L Chloride Level 98 MEQ/L Carbon Dioxide Level 26.8 MEQ/L Anion Gap 13 MEQ/L Estimat Glomerular Filtration Rate 107 ML/MIN Total Creatine Kinase 162 U/L Creatine Kinase MB 0.8 NG/ML Troponin I LESS THAN 0.02 NG/ML B-Type Natriuretic Peptide 139 PG/ML Lipase 109 U/L Thyroid Stimulating Hormone 3rd Gen 0.251 uIU/ML Salicylates Level LESS THAN 1.7 MG/DL Acetaminophen Level LESS THAN 2.0 MCG/ML Ethyl Alcohol Level 167 MG/DL Urine Color YELLOW Urine Turbidity CLEAR Urine pH 8.0 Urine Specific [place] 1.014 Urine Protein 30 mg/dL Urine Glucose (UA) NEG mg/dL Urine Ketones NEG mg/dL Urine Occult Blood NEG Urine Nitrite NEG Urine Bilirubin NEG Urine Urobilinogen 2.0 MG/DL Urine Leukocyte Esterase TRACE Urine RBC LESS THAN 1 /hpf Urine WBC 10 /hpf Urine Hyaline Casts 3 /lpf Microscopic Urinalysis Comment CULTURE INDICATED Urine Opiates Screen NEG Urine Barbiturates Screen NEG Urine Amphetamines Screen NEG Urine Benzodiazepines Screen NEG Urine Cocaine Screen NEG Urine Cannabinoids Screen NEG MDM Medical Decision Making Medical Screen Exam Complete: Yes Emergency Medical Condition: Yes Medical Record Reviewed: Yes Interpretation(s) Last Impressions Chest X-Ray 11/09/162023 Signed Impressions: Service Date/Time: Wednesday, November 09, 2016 20:45 - CONCLUSION: 1. Basilar atelectasis. Postop CABG. No pneumothorax or significant effusion. Herman Houston MD Differential Diagnosis Acute coronary syndrome, versus anxiety disorder, versus acid reflux, versus pancreatitis, versus pneumothorax, versus new-onset congestive heart failure Narrative Course During the course of the patients emergency department visit, the patients history, examination, and differential diagnosis were reviewed with the patient. The patient had IV access obtained and blood work sent for analysis. The patient was placed on a director pharmacovigilance with oximetry and blood pressure monitoring. An ECG was done on arrival. The patient's ECG shows a sinus rhythm heart rate of 99, ST segment deviation, T-wave abnormalities are noted in the 2, V3, V4, V5, V6. The patient is noted to have T-wave inversions in lead 1,. The patient was initially provided aspirin 324 mg by mouth 1, nitroglycerin 1 inch to the chest wall, nitroglycerin 1. The patients laboratory studies were reviewed and remarkable for a CBC that is unremarkable, CMP is remarkable for potassium of 3.3 which was supplemented orally, glucose 168, AST 39, ALT 98, CPK 162, troponin I less than 0.02, BNP 139 , TSH is 0.251, PT 11.4, PTT 24, alcohol level is 165, acetaminophen less than 2 , salicylate less than 1.7, urine drug screen is negative, urinalysis is unremarkable. Radiology studies were reviewed and remarkable for a chest x-ray that showed basilar atelectasis, postop CABG, noted pneumothorax or significant effusion. The patient presents under a Lee act which was reviewed. The patient reported suicidal ideations. A sitter will be placed at the bedside. The patient will be admitted to the chest pain center for rule out serial cardiac enzyme protocol followed by clearance if the stress test is negative for evaluation by the psychiatrist under the Lee act. The patients results were discussed with the patient, including the plan of care. I explained that further testing and/ or monitoring is indicated based on the patients history, examination, and/ or laboratory findings. Therefore, I recommended admission for additional evaluation. The patient expressed understanding and was agreeable with this plan. The patient was admitted to the hospital in stable condition and sent to a bed under the care of the chest pain center. Diagnosis Primary Impression: Chest pain, rule out acute myocardial infarction Additional Impressions: Hx of coronary artery disease Substance abuse Depression with suicidal ideation Admitting Information Admitting Physician Requests: Observation Natali Peters MD Nov 09, 2016 20:32
[2016-11-09 20:45] LABS: AUTOMATED NEUTROPHIL # 7.2 TH/MM3 (1.8-7.7); BASOPHIL % 0.4 % (0.0-2.0); HEMATOCRIT 52.3 % (39.0-51.0); HEMO FLAGS DIFF FINAL; LYMPH % 15.1 % (9.0-44.0); LYMPHOCYTE # 1.4 TH/MM3 (1.0-4.8); MEAN CELL VOLUME 91.1 FL (80.0-100.0); MEAN CORPUSCULAR HEMOGLOBIN 30.5 PG (27.0-34.0); MEAN CORPUSCULAR HGB CONC 33.5 % (32.0-36.0); MONO % 5.9 % (0.0-8.0); NEUT % 78.6 % (16.0-70.0); PLATELET COUNT 263 TH/MM3 (150-450); RED BLOOD COUNT 5.74 MIL/MM3 (4.50-5.90); RED CELL DISTRIBUTION WIDTH 14.4 % (11.6-17.2); WHITE BLOOD COUNT 9.2 TH/MM3 (4.0-11.0)
[2016-11-09 20:57] LABS: PROTHROMBIN TIME - PATIENT 11.4 SEC (9.8-11.6)
[2016-11-09 21:01] LABS: BLOOD, URINE NEG (NEG); COMMENT (UR) CULTURE INDICATED; CULTURE IF INDICATED CULTURE INDICATED; GLUCOSE,URINE NEG (NEG); HYALINE CAST, URINE 3 /lpf (RARE); KETONE, URINE NEG (NEG); NITRITE,URINE NEG (NEG); URINE COLOR YELLOW (YELLW/STRAW)
[2016-11-09 21:14] LABS: ANION GAP 13 MEQ/L (5-15); AST (GOT) 39 U/L (15-37); BICARBONATE 26.8 MEQ/L (21.0-32.0); BLOOD UREA NITROGEN 3 MG/DL (7-18); CHLORIDE 98 MEQ/L (98-107); GLOMERULAR FILTRATION RATE 107 ML/MIN (>89); MAGNESIUM 1.6 MG/DL (1.5-2.5); POTASSIUM 3.3 MEQ/L (3.5-5.1); SODIUM (NA) 138 MEQ/L (136-145)
--- NOTE | 2016-11-09 21:23 | RADRPT ---
EXAM DATE/TIME: 11/09/2016 20:45 [facility] COMPARISON: CHEST SINGLE AP, September 09, 2016, 4:28. INDICATIONS : Chest pain. MEDICAL HISTORY : None. SURGICAL HISTORY : CABG. ENCOUNTER: Initial ACUITY: 1 day PAIN SCORE: 8/10 LOCATION: Bilateral chest FINDINGS: A single view of the chest demonstrates the lungs to be symmetrically aerated without evidence of mas s, infiltrate or effusion. Mild basilar atelectasis. The cardiomediastinal contours are unremarkable with postoperative CABG. CONCLUSION: 1. Basilar atelectasis. Postop CABG. No pneumothorax or significant effusion. Herman Houston MD on November 09, 2016 at 21:21 Board Certified Radiologist. This report was verified electronically.
[2016-11-09 21:24] LABS: ALKALINE PHOSPHATASE 65 U/L (45-117); ALT (GPT) 98 U/L (12-78); CREATINE KINASE 162 U/L (39-308); TOTAL BILIRUBIN ADULT 0.5 MG/DL (0.2-1.0)
[2016-11-09 21:26] LABS: ACETAMINOPHEN LESS THAN 2.0 MCG/ML (10.0-30.0); ALCOHOL 167 MG/DL (0-5)
[2016-11-09 21:39] LABS: CKMB 0.8 NG/ML (0.5-3.6)
[2016-11-09] MEDS ORDERED: PROCHLORPERAZINE INJ 10 MG/2 ML VIAL IV PUSH ONE (22:00)
[2016-11-09 22:01] VITALS: BP 98/59; PULSE 102; RESP 18; O2SAT 96
[2016-11-09] MEDS ORDERED: POTASSIUM CHLORIDE 20 MEQ CONTROLLED RELEASE TAB PO ONE (22:15)
[2016-11-09] MEDS ORDERED: LORazepam 2 MG/ML VIAL IV PUSH ONE (22:15)
[2016-11-09] MEDS ORDERED: LORazepam 2 MG/ML VIAL IV PUSH PRN ×2 (23:00)
[2016-11-09] MEDS ORDERED: FLUMAZENIL 0.5 MG/5 ML VIAL IV PUSH PRN (23:00)
[2016-11-09] MEDS ORDERED: LORazepam 2 MG TAB PO PRN (23:00)
[2016-11-09] MEDS ORDERED: SODIUM CHLORIDE 0.9% FLUSH 10 ML FLUSH IV FLUSH PRN (23:00)
[2016-11-09] MEDS ORDERED: LORazepam 1 MG TAB PO PRN (23:00)
[2016-11-09 23:37] VITALS: BP 111/61; PULSE 89; RESP 18; O2SAT 95
[2016-11-10] VITALS (8 sets, daily range): BP systolic 99–134; BP diastolic 56–90; PULSE 67–80; RESP 16–19; TEMP 97.7–98.5; O2SAT 94–98
[2016-11-10 00:32] LABS: CREATINE KINASE 145 U/L (39-308)
[2016-11-10 00:44] LABS: CKMB 1.3 NG/ML (0.5-3.6)
[2016-11-10] MEDS: LORazepam 2 MG/ML VIAL IV PUSH PRN ×5 (02:51→11:06)
[2016-11-10 03:18] LABS: CREATINE KINASE 103 U/L (39-308)
[2016-11-10 03:30] LABS: CKMB 1.1 NG/ML (0.5-3.6)
[2016-11-10] MEDS ORDERED: ATENOLOL 25 MG TAB PO SCH (09:00)
[2016-11-10] MEDS ORDERED: SODIUM CHLORIDE 0.9% FLUSH 10 ML FLUSH IV FLUSH SCH (09:00)
[2016-11-10] MEDS ORDERED: REGADENOSON INJ 0.4 MG/5 ML SYR ONE (09:18)
--- NOTE | 2016-11-10 09:57 | HHI.HP ---
HPI Primary Care Physician No Primary Care Physician Chief Complaint Chest pain History of Present Illness This is a 56-year-old male with history of CAD status post three-vessel CABG about 10 years ago followed by stenting 6 and also 8 years ago that presents to ED under a police service technician issue Lee act with a complaint of chest pain. He describes a chest pressure as an 8 out of 10. When asked how long it lasted, patient really cannot answer. He then states that he had been drinking a lot of alcohol. States he is alcoholic. States he went on a morales for the last 4 days drinking as much as he could find. He has felt nauseous and had a couple episodes of emesis over the last couple days. Diaphoresis. He states he does not follow biology research assistant. Cannot recall prior stress testing however review records he had a nonischemic Lexiscan June 02, 2016 at this facility within EF of 60%. Patient continues to smoke cigarettes. States he has been compliant with his atenolol and atorvastatin. Also states he has history of DTs after stopping all consumption. Cannot recall last episode. Currently denies chest discomfort. When asked why he is Lee acted patient resupply "I did not know where to go." When asked if he wanted to kill himself the patient replies "I just did not know where to go, and he did help." Would not specify if he was having homicidal or suicidal ideations. Review of Systems General: Patient denies fevers, chills recent, and recent travel HEENT: Patient denies headache, sore throat, difficulty swallowing. Cardiovascular: Has the chest discomfort as mentioned above. Denies sensation of heart beating rapidly or irregularly. No syncope. Denies diaphoresis. Respiratory: Denies shortness of breath or inspirational chest discomfort. Denies coughing wheezing or hemoptysis. GI: Patient denies diarrhea, abdominal pain, bloody stools. Musculoskeletal: Patient denies joint pain or edema. Denies calf pain or edema. Neurovascular: Patient denies numbness, tingling, weakness in extremities. Denies headache. Endocrine: Denies polyuria and polydipsia. Hematologic: Denies easy bruising. Skin: Denies rash or itching. Past Family Social History Allergies: Coded Allergies: penicillin G (Unverified Allergy, Severe, 11/09/16) Past Medical History CAD with CABG 3 about 10 years ago followed by cardiac catheterization with stenting 8 years ago and 6 years ago. Hypertension and hyperlipidemia. Tobacco abuse. Alcohol abuse. Denies diabetes. Past Surgical History CAD with CABG 3 about 10 years ago. Multiple heart catheterizations most recently being 6 and 8 years ago with stenting. Reported Medications Reported Meds & Active Scripts Active Chlordiazepoxide HCl 25 Mg Capsule 25 Mg PO Q6HR PRN Reported Aspirin 81 Mg Chew 81 Mg CHEW DAILY Atorvastatin (Atorvastatin Calcium) 40 Mg Tab 40 Mg PO HS Atenolol 25 Mg Tab 25 Mg PO BID Active Ordered Medications Current Medications Medications (Trade) Dose Ordered Sig/Edgardo Route Start Time Stop Time Status Last Admin (NS Flush) 2 ml UNSCH PRN IV FLUSH 11/09/16 23:00 (NS Flush) 2 ml BID IV FLUSH 11/10/16 09:00 11/10/16 07:43 (Romazicon Inj) 0.2 mg Q1M PRN IV PUSH 11/09/16 23:00 (Ativan) 1 mg Q4H PRN PO 11/09/16 23:00 (Ativan Inj) 1 mg Q4H PRN IV PUSH 11/09/16 23:00 11/10/16 02:51 (Ativan) 2 mg Q2H PRN PO 11/09/16 23:00 (Ativan Inj) 2 mg Q2H PRN IV PUSH 11/09/16 23:00 11/10/16 07:39 (Ativan Inj) 2 mg Q1H PRN IV PUSH 11/09/16 23:00 (Ativan Inj) 2 mg Q15M PRN IV PUSH 11/09/16 23:00 (Tenormin) 25 mg BID PO 11/10/16 09:00 (Lipitor) 40 mg HS PO 11/10/16 21:00 Family History There is family history of CAD. Social History Minutes to being an alcoholic. States he drank as much she could over the last 4 days. He should smokes one pack of cigarettes daily. Denies illicit drugs. Physical Exam Vital Signs Vital Signs Date Time Temp Pulse Resp B/P (MAP) Pulse Ox O2 Delivery O2 Flow Rate FiO2 11/10/16 07:30 95 21 11/10/16 07:29 98.0 70 16 130/82 (98) 95 11/10/16 04:53 98.5 76 18 109/67 (81) 94 11/10/16 03:53 118/70 (86) 11/10/16 03:28 21 11/10/16 01:39 97.7 80 19 99/56 (70) 95 11/10/16 00:18 11/09/16 23:37 89 18 111/61 (78) 95 Nasal Cannula 2.00 11/09/16 22:01 102 18 98/59 (72) 96 Room Air 11/09/16 20:29 95 Nasal Cannula 2.00 11/09/16 20:29 18 95 Nasal Cannula 2.00 11/09/16 20:20 98.4 101 18 132/80 (97) 95 Physical Exam GENERAL: This is a well-nourished, well-developed patient, in no apparent distress. Patient speaks in clear complete sentences. Patient is pleasant. HEENT: Head is atraumatic and normocephalic. Neck is supple without lymphadenopathy and trachea is midline. No JVD or carotid bruits. CARDIOVASCULAR: Regular rate and rhythm without murmurs, gallops, or rubs. RESPIRATORY: Clear to auscultation. Breath sounds equal bilaterally. No wheezes , rales, or rhonchi. Chest wall is nontender. No use of accessory muscles. GASTROINTESTINAL: Abdomen is nontender, nondistended. Abdomen soft. No obvious pulsatile mass or bruit. No CVA tenderness. Strong femoral pulses bilaterally. Normal bowel sounds in all quadrants. MUSCULOSKELETAL: Patient is moving upper and lower extremities freely. No calf tenderness or edema, no Homans sign. Strong pulses in upper and lower extremities. NEUROLOGICAL: Patient is alert and oriented. Cranial nerves 2-12 are grossly intact. No focal deficits and speech is clear. SKIN: No rash and turgor is normal. Laboratory Laboratory Tests Test 11/09/16 20:30 11/09/16 20:35 11/09/16 23:35 11/10/16 02:30 White Blood Count 9.2 Red Blood Count 5.74 Hemoglobin 17.5 Hematocrit 52.3 Mean Corpuscular Volume 91.1 Mean Corpuscular Hemoglobin 30.5 Mean Corpuscular Hemoglobin Concent 33.5 Red Cell Distribution Width 14.4 Platelet Count 263 Mean Platelet Volume 6.8 Neutrophils (%) (Auto) 78.6 Lymphocytes (%) (Auto) 15.1 Monocytes (%) (Auto) 5.9 Eosinophils (%) (Auto) 0.0 Basophils (%) (Auto) 0.4 Neutrophils # (Auto) 7.2 Lymphocytes # (Auto) 1.4 Monocytes # (Auto) 0.5 Eosinophils # (Auto) 0.0 Basophils # (Auto) 0.0 CBC Comment DIFF FINAL Differential Comment Prothrombin Time 11.4 Prothromb Time International Ratio 1.0 Activated Partial Thromboplast Time 24.0 Blood Urea Nitrogen 3 Creatinine 0.76 Random Glucose 168 Total Protein 7.2 Albumin 3.5 Calcium Level 8.1 Magnesium Level 1.6 Alkaline Phosphatase 65 Aspartate Amino Transf (AST/SGOT) 39 Alanine Aminotransferase (ALT/SGPT) 98 Total Bilirubin 0.5 Sodium Level 138 Potassium Level 3.3 Chloride Level 98 Carbon Dioxide Level 26.8 Anion Gap 13 Estimat Glomerular Filtration Rate 107 Total Creatine Kinase 162 145 103 Creatine Kinase MB 0.8 1.3 1.1 Troponin I LESS THAN 0.02 0.02 0.02 B-Type Natriuretic Peptide 139 Lipase 109 Thyroid Stimulating Hormone 3rd Gen 0.251 Salicylates Level LESS THAN 1.7 Acetaminophen Level LESS THAN 2.0 Ethyl Alcohol Level 167 Urine Color YELLOW Urine Turbidity CLEAR Urine pH 8.0 Urine Specific [place] 1.014 Urine Protein 30 Urine Glucose (UA) NEG Urine Ketones NEG Urine Occult Blood NEG Urine Nitrite NEG Urine Bilirubin NEG Urine Urobilinogen 2.0 Urine Leukocyte Esterase TRACE Urine RBC LESS THAN 1 Urine WBC 10 Urine Hyaline Casts 3 Microscopic Urinalysis Comment CULTURE INDICATED Urine Opiates Screen NEG Urine Barbiturates Screen NEG Urine Amphetamines Screen NEG Urine Benzodiazepines Screen NEG Urine Cocaine Screen NEG Urine Cannabinoids Screen NEG Date/Time Source Procedure Growth Status 11/09/16 20:35 Urine Random Urine Urine Culture Pending Received Result Diagram: 11/09/16202911/09/162029 Imaging Last 48 hours Impressions Chest X-Ray 11/09/162023 Signed Impressions: Service Date/Time: Wednesday, November 09, 2016 20:45 - CONCLUSION: 1. Basilar atelectasis. Postop CABG. No pneumothorax or significant effusion. Herman Houston MD Course EKGs have been sinus rhythm without significant ST segment depressions or elevations. Caprini VTE Risk Assessment Caprini VTE Risk Assessment: No/Low Risk (score <= 1) Caprini Risk Assessment Model Point Value = 1 Point Value = 2 Point Value = 3 Point Value = 5 Age 41-60 Minor surgery BMI > 25 kg/m2 Swollen legs Varicose veins or History of unexplained or recurrent spontaneous Oral contraceptives or hormone replacement Sepsis (< 1 month) Serious lung disease, including pneumonia (< 1 month) Abnormal pulmonary function Acute myocardial infarction Congestive heart failure (< 1 month) History of inflammatory bowel disease Medical patient at bed rest Age 61-74 Arthroscopic surgery Major open surgery (> 45 min) Laparoscopic surgery (> 45 min) Malignancy Confined to bed (> 72 hours) Immobilizing plaster cast Central venous access Age >= 75 History of VTE Family history of VTE Factor V Leiden Prothrombin [id number] Lupus anticoagulant Anticardiolipin antibodies Elevated serum homocysteine Heparin-induced thrombocytopenia Other congenital or acquired thrombophilia Stroke (< 1 month) Elective arthroplasty Hip, pelvis, or leg fracture Acute spinal cord injury (< 1 month) Prophylaxis Regimen Total Risk Factor Score Risk Level Prophylaxis Regimen 0-1 Low Early ambulation 2 Moderate Order ONE of the following: *Sequential Compression Device (SCD) *Heparin 5000 units SQ BID 3-4 Higher Order ONE of the following medications: *Heparin 5000 units SQ TID *Enoxaparin/Lovenox 40 mg SQ daily (WT < 150 kg, CrCl > 30 mL/min) *Enoxaparin/Lovenox 30 mg SQ daily (WT < 150 kg, CrCl > 10-29 mL/min) *Enoxaparin/Lovenox 30 mg SQ BID (WT < 150 kg, CrCl > 30 mL/min) AND/OR *Sequential Compression Device (SCD) 5 or more Highest Order ONE of the following medications: *Heparin 5000 units SQ TID (Preferred with Epidurals) *Enoxaparin/Lovenox 40 mg SQ daily (WT < 150 kg, CrCl > 30 mL/min) *Enoxaparin/Lovenox 30 mg SQ daily (WT < 150 kg, CrCl > 10-29 mL/min) *Enoxaparin/Lovenox 30 mg SQ BID (WT < 150 kg, CrCl > 30 mL/min) AND *Sequential Compression Device (SCD) Assessment and Plan Assessment and Plan * Chest pain: Patient has had serial cardiac enzymes and EKGs for ruling out purposes. He was seen by Dr. Davian Bustos of cardiology in the chest pain center and will undergo a Lexiscan. He'll be discharged home if his Lexiscan is nonischemic with instructions to follow-up with her biology research assistant as well as local primary care physician. * CAD: Patient history CABG. This will be reassessed for stress testing. He needs to make arrangements to follow-up with outpatient biology research assistant. * Hypertension: Continue current medication. * Hyperlipidemia: Continue current medication. His LFTs were a little bit elevated. He need to stop his alcohol consumption and recheck LFTs as the patient also is on statin therapy. He may have to discuss risks of statin therapy with PCP if his LFTs do not normalize. * Tobacco abuse: Patient has been counseled on importance of smoking cessation. * Alcohol abuse: Patient needs to quit his excessive alcohol consumption. He should check into detox facility of his choice. * Lee act: Psych consult has been requested and is pending at this time. We appreciate their assistance. Franklin West Nov 10, 2016 09:57
--- NOTE | 2016-11-10 11:24 | RADRPT ---
EXAM DATE/TIME: 11/10/2016 08:48 [facility] COMPARISON: MYOCARDIAL PERF PHARM SPECT, GATED W/EF, June 02, 2016, 13:33. INDICATIONS : Chest pain with diaphoresis, dyspnea, nausea and vomiting. Angina. DOSE: 35 mCi Tc99m Myoview at stress. 10.9 mCi Tc99m Myoview at rest. 0.4 mg Lexiscan STRESS SYMPTOMS: Dyspnea and chest pain. EJECTION FRACTION: 57% MEDICAL HISTORY : Hypercholesterolemia. Hypertension. SURGICAL HISTORY : CABG Coronary artery stent. ENCOUNTER: Initial ACUITY: 1 day PAIN SCALE: 8/10 LOCATION: chest TECHNIQUE: The patient underwent pharmacologic stress with infusion of prescribed dose. Continuous ECG tracing was monitored during stress. Gated SPECT imaging was performed after stress and conventional SPECT i maging was performed at rest. The examination was performed on a SPECT/CT scanner, both attenuation and non-corrected datasets were reviewed. FINDINGS: DISTRIBUTION: The maximum perfused segment at stress is in the inferoseptal wall. PERFUSION STUDY: The pattern of perfusion at stress is within normal limits without stress-induced perfusion defects o r evidence of redistribution. The summed stress score is zero.. GATED STUDY: There is intact wall motion and thickening without hypokinetic or dyskinetic segments. CONCLUSION: 1. No evidence of stress-induced ischemia. 2. Intact wall motion with 57% ejection fraction. RISK CATEGORY: Low (<1% Annual Mortality Rate) Dario Stephenson MD on November 10, 2016 at 11:21 Board Certified Radiologist. This report was verified electronically.
--- NOTE | 2016-11-10 11:39 | TR ---
Date Performed: 11/10/2016 Time Performed: 09:27:43 DOCTOR: Davian Bustos DRUG LIST: CLINICAL HISTORY: REASON FOR TEST: CHEST PAIN REASON FOR ENDING: OBSERVATION: CONCLUSION: Lexiscan stress test was performed under standard four minute protocol. Radionuclid e was injected one minute prior to ending the test. ECG shows ST changes concerning for ischemia Nucl ear imaging and interpretation are pending. COMMENTS:
--- NOTE | 2016-11-10 11:42 | EKG ---
Date Performed: 11/09/2016 Time Performed: 20:24:02 PTAGE: 56 years EKG: Sinus rhythm POSSIBLE LEFT ATRIAL ENLARGEMENT ST DEVIATION AND MODERATE T-WAVE ABNORMALITY, CONSIDER ANTEROLATERA L ISCHEMIA ABNORMAL ECG PREVIOUS TRACING : 09/09/2016 09.39 Since previous tracing, rate is faster and ST changes are m ore prominent. DOCTOR: Davian Bustos Interpretating Date/Time 11/10/2016 11:41:37
--- NOTE | 2016-11-10 11:42 | EKG ---
Date Performed: 11/09/2016 Time Performed: 23:33:35 PTAGE: 56 years EKG: Sinus rhythm WITH OCCASIONAL VENTRICULAR PREMATURE COMPLEXES POSSIBLE LEFT ATRIAL ENLARGEMENT ST DEVIATION AND MO DERATE T-WAVE ABNORMALITY, CONSIDER ANTERIOR ISCHEMIA ABNORMAL ECG PREVIOUS TRACING : 11/09/2016 20.24 Since previous tracing, no significant change noted DOCTOR: Davian Bustos Interpretating Date/Time 11/10/2016 11:41:04
--- NOTE | 2016-11-10 11:42 | EKG ---
Date Performed: 11/10/2016 Time Performed: 02:55:02 PTAGE: 56 years EKG: Sinus rhythm WITH SINUS ARRHYTHMIA NONSPECIFIC ST & T-WAVE ABNORMALITY BORDERLINE ECG PREVIOUS TRACING : 11/09/2016 23.33 Since previous tracing, no significant change noted DOCTOR: Davian Bustos Interpretating Date/Time 11/10/2016 11:42:06
--- NOTE | 2016-11-10 12:58 | PD.PSY.CON ---
Provisional Diagnosis Admission Date Nov 09, 2016 at 22:05 History of Present Illness Service Psychiatry Consult Requested By Reason for Consult On Lee act Primary Care Physician No Primary Care Physician Past Family Social History Coded Allergies: penicillin G (Unverified Allergy, Severe, 11/09/16) Active Scripts Chlordiazepoxide HCl (Chlordiazepoxide HCl) 25 Mg Capsule, 25 MG PO Q6HR Y for withdrawal, #6 Prov:Ashli Acevedo MD 09/08/16 Reported Medications Aspirin (Aspirin) 81 Mg Chew, 81 MG CHEW DAILY, TAB 0 Refills 09/07/16 Atorvastatin (Atorvastatin) 40 Mg Tab, 40 MG PO HS for Cholesterol Management, # 30 TAB 0 Refills 07/23/16 Atenolol (Atenolol) 25 Mg Tab, 25 MG PO BID for Blood Pressure Management, #60 TAB 0 Refills 06/02/16 Current Medications Medications (Trade) Dose Ordered Sig/Edgardo Route Start Time Stop Time Status Last Admin (NS Flush) 2 ml UNSCH PRN IV FLUSH 11/09/16 23:00 (NS Flush) 2 ml BID IV FLUSH 11/10/16 09:00 11/10/16 07:43 (Romazicon Inj) 0.2 mg Q1M PRN IV PUSH 11/09/16 23:00 (Ativan) 1 mg Q4H PRN PO 11/09/16 23:00 (Ativan Inj) 1 mg Q4H PRN IV PUSH 11/09/16 23:00 11/10/16 11:06 (Ativan) 2 mg Q2H PRN PO 11/09/16 23:00 (Ativan Inj) 2 mg Q2H PRN IV PUSH 11/09/16 23:00 11/10/16 07:39 (Ativan Inj) 2 mg Q1H PRN IV PUSH 11/09/16 23:00 (Ativan Inj) 2 mg Q15M PRN IV PUSH 11/09/16 23:00 (Tenormin) 25 mg BID PO 11/10/16 09:00 11/10/16 10:24 (Lipitor) 40 mg HS PO 11/10/16 21:00 Physical Exam Vital Signs Vital Signs Date Time Temp Pulse Resp B/P (MAP) Pulse Ox O2 Delivery O2 Flow Rate FiO2 11/10/16 08:00 72 11/10/16 07:30 95 21 11/10/16 07:29 98.0 16 130/82 (98) 11/09/16 23:37 Nasal Cannula 2.00 I/O 11/10/16 11/10/16 11/10/16 07:59 15:59 23:59 Output Total 350 ml Balance -350 ml Lab Results Test 11/09/16 20:30 11/09/16 20:35 11/09/16 23:35 11/10/16 02:30 White Blood Count 9.2 TH/MM3 Red Blood Count 5.74 MIL/MM3 Hemoglobin 17.5 GM/DL Hematocrit 52.3 % Mean Corpuscular Volume 91.1 FL Mean Corpuscular Hemoglobin 30.5 PG Mean Corpuscular Hemoglobin Concent 33.5 % Red Cell Distribution Width 14.4 % Platelet Count 263 TH/MM3 Mean Platelet Volume 6.8 FL Neutrophils (%) (Auto) 78.6 % Lymphocytes (%) (Auto) 15.1 % Monocytes (%) (Auto) 5.9 % Eosinophils (%) (Auto) 0.0 % Basophils (%) (Auto) 0.4 % Neutrophils # (Auto) 7.2 TH/MM3 Lymphocytes # (Auto) 1.4 TH/MM3 Monocytes # (Auto) 0.5 TH/MM3 Eosinophils # (Auto) 0.0 TH/MM3 Basophils # (Auto) 0.0 TH/MM3 CBC Comment DIFF FINAL Differential Comment Prothrombin Time 11.4 SEC Prothromb Time International Ratio 1.0 RATIO Activated Partial Thromboplast Time 24.0 SEC Blood Urea Nitrogen 3 MG/DL Creatinine 0.76 MG/DL Random Glucose 168 MG/DL Total Protein 7.2 GM/DL Albumin 3.5 GM/DL Calcium Level 8.1 MG/DL Magnesium Level 1.6 MG/DL Alkaline Phosphatase 65 U/L Aspartate Amino Transf (AST/SGOT) 39 U/L Alanine Aminotransferase (ALT/SGPT) 98 U/L Total Bilirubin 0.5 MG/DL Sodium Level 138 MEQ/L Potassium Level 3.3 MEQ/L Chloride Level 98 MEQ/L Carbon Dioxide Level 26.8 MEQ/L Anion Gap 13 MEQ/L Estimat Glomerular Filtration Rate 107 ML/MIN Total Creatine Kinase 162 U/L 145 U/L 103 U/L Creatine Kinase MB 0.8 NG/ML 1.3 NG/ML 1.1 NG/ML Troponin I LESS THAN 0.02 NG/ML 0.02 NG/ML 0.02 NG/ML B-Type Natriuretic Peptide 139 PG/ML Lipase 109 U/L Thyroid Stimulating Hormone 3rd Gen 0.251 uIU/ML Salicylates Level LESS THAN 1.7 MG/DL Acetaminophen Level LESS THAN 2.0 MCG/ML Ethyl Alcohol Level 167 MG/DL Urine Color YELLOW Urine Turbidity CLEAR Urine pH 8.0 Urine Specific [place] 1.014 Urine Protein 30 mg/dL Urine Glucose (UA) NEG mg/dL Urine Ketones NEG mg/dL Urine Occult Blood NEG Urine Nitrite NEG Urine Bilirubin NEG Urine Urobilinogen 2.0 MG/DL Urine Leukocyte Esterase TRACE Urine RBC LESS THAN 1 /hpf Urine WBC 10 /hpf Urine Hyaline Casts 3 /lpf Microscopic Urinalysis Comment CULTURE INDICATED Urine Opiates Screen NEG Urine Barbiturates Screen NEG Urine Amphetamines Screen NEG Urine Benzodiazepines Screen NEG Urine Cocaine Screen NEG Urine Cannabinoids Screen NEG Date/Time Source Procedure Growth Status 11/09/16 20:35 Urine Random Urine Urine Culture Pending Received Assessment & Plan Problem List: (1) Alcohol dependence ICD Codes: F10.20 - Alcohol dependence, uncomplicated Status: Acute Assessment & Plan: Patient was tried to be evaluated in the ER, but at the time of our visit he was not present in his bed. As per nurse patient was having an Test at this moment. We will come back in a later time. Assessment & Plan Estimated LOS: Barry Avery MD Nov 10, 2016 12:58
--- NOTE | 2016-11-10 14:52 | PD.PSY.CON ---
Provisional Diagnosis Admission Date Nov 09, 2016 at 22:05 Butler I. Alcohol induced mood disorder, alcohol use disorder Butler II. 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 He describes a chest pressure as an 8 out of 10. When asked how long it lasted, patient really cannot answer. He then states that he had been drinking a lot of alcohol. States he is alcoholic. States he went on a morales for the last 4 days drinking as much as he could find. He has felt nauseous and had a couple episodes of emesis over the last couple days. Diaphoresis. 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 Cannot recall prior stress testing however review records he had a nonischemic Lexiscan June 02, 2016 at this facility within EF of 60%. Patient continues to smoke cigarettes. States he has been compliant with his atenolol and atorvastatin. Also states he has history of DTs after stopping all consumption. Cannot recall last episode. Currently denies chest discomfort. When asked why he is Lee acted patient resupply "I did not know where to go." When asked if he wanted to kill himself the patient replies "I just did not know where to go, and he did help." Would not specify if he was having homicidal or suicidal ideations. Con order to psychiatry due to Lee act. On psychiatric evaluation today patient denies mood symptoms, he says that he was drunk when he expressed suicidal ideation. Patient is future oriented, he says that he is motivated to quit alcohol and to start a new job. Patient denies suicidal and homicidal ideation, he denies visual and auditory hallucinations. He is oriented 3, calm, cooperative and relevant. Review of Systems Constitutional: DENIES: Diaphoretic episodes, Fatigue, Fever, Weight gain, Weight loss, Chills, Dizziness, Change in appetite, Night Sweats Endocrine: DENIES: Heat/cold intolerance, Polydipsia, Polyuria, Polyphagia Eyes: DENIES: Blurred vision, Diplopia, Eye inflammation, Eye pain, Vision loss , Photosensitivity, Double Vision Ears, nose, mouth, throat: DENIES: Tinnitus, Hearing loss, Vertigo, Nasal discharge, Oral lesions, Throat pain, Hoarseness, Ear Pain, Running Nose, Epistaxis, Sinus Pain, Toothache, Odynophagia Respiratory: DENIES: Apneas, Cough, Snoring, Wheezing, Hemoptysis, Sputum production, Shortness of breath Cardiovascular: DENIES: Chest pain, Palpitations, Syncope, Dyspnea on Exertion , PND, Lower Extremity Edema, Orthopnea, Claudication Gastrointestinal: DENIES: Abdominal pain, Black stools, Bloody stools, Constipation, Diarrhea, Nausea, Vomiting, Difficulty Swallowing, Anorexia Musculoskeletal: DENIES: Joint pain, Muscle aches, Stiffness, Joint Swelling, Back pain, Neck pain Integumentary: DENIES: Abnormal pigmentation, Nail changes, Pruritus, Rash Hematologic/lymphatic: DENIES: Bruising, Lymphadenopathy Neurologic: DENIES: Abnormal gait, Headache, Localized weakness, Paresthesias, Seizures, Speech Problems, Tremor, Poor Balance Psychiatric: DENIES: Anxiety, Confusion, Mood changes, Depression, Hallucinations, Agitation, Suicidal Ideation, Homicidal Ideation, Delusions Past Family Social History Coded Allergies: penicillin G (Unverified Allergy, Severe, 11/09/16) Active Scripts Chlordiazepoxide HCl (Chlordiazepoxide HCl) 25 Mg Capsule, 25 MG PO Q6HR Y for withdrawal, #6 Prov:Ashli Acevedo MD 09/08/16 Reported Medications Aspirin (Aspirin) 81 Mg Chew, 81 MG CHEW DAILY, TAB 0 Refills 09/07/16 Atorvastatin (Atorvastatin) 40 Mg Tab, 40 MG PO HS for Cholesterol Management, # 30 TAB 0 Refills 07/23/16 Atenolol (Atenolol) 25 Mg Tab, 25 MG PO BID for Blood Pressure Management, #60 TAB 0 Refills 06/02/16 Current Medications Medications (Trade) Dose Ordered Sig/Edgardo Route Start Time Stop Time Status Last Admin (NS Flush) 2 ml UNSCH PRN IV FLUSH 11/09/16 23:00 (NS Flush) 2 ml BID IV FLUSH 11/10/16 09:00 11/10/16 07:43 (Romazicon Inj) 0.2 mg Q1M PRN IV PUSH 11/09/16 23:00 (Ativan) 1 mg Q4H PRN PO 11/09/16 23:00 (Ativan Inj) 1 mg Q4H PRN IV PUSH 11/09/16 23:00 11/10/16 11:06 (Ativan) 2 mg Q2H PRN PO 11/09/16 23:00 (Ativan Inj) 2 mg Q2H PRN IV PUSH 11/09/16 23:00 11/10/16 07:39 (Ativan Inj) 2 mg Q1H PRN IV PUSH 11/09/16 23:00 (Ativan Inj) 2 mg Q15M PRN IV PUSH 11/09/16 23:00 (Tenormin) 25 mg BID PO 11/10/16 09:00 11/10/16 10:24 (Lipitor) 40 mg HS PO 11/10/16 21:00 Family History No family psychiatric history Social History Patient was born and raised in [facility], he has been living in [place] for 3 years, he lives in [facility] alone, recently , unemployed, highest level of education is high school Physical Exam Vital Signs Vital Signs Date Time Temp Pulse Resp B/P (MAP) Pulse Ox O2 Delivery O2 Flow Rate FiO2 11/10/16 13:41 98.0 73 16 134/90 (105) 98 11/10/16 07:30 21 11/09/16 23:37 Nasal Cannula 2.00 I/O 11/10/16 11/10/16 11/10/16 07:59 15:59 23:59 Output Total 350 ml Balance -350 ml Lab Results Test 11/09/16 20:30 11/09/16 20:35 11/09/16 23:35 11/10/16 02:30 White Blood Count 9.2 TH/MM3 Red Blood Count 5.74 MIL/MM3 Hemoglobin 17.5 GM/DL Hematocrit 52.3 % Mean Corpuscular Volume 91.1 FL Mean Corpuscular Hemoglobin 30.5 PG Mean Corpuscular Hemoglobin Concent 33.5 % Red Cell Distribution Width 14.4 % Platelet Count 263 TH/MM3 Mean Platelet Volume 6.8 FL Neutrophils (%) (Auto) 78.6 % Lymphocytes (%) (Auto) 15.1 % Monocytes (%) (Auto) 5.9 % Eosinophils (%) (Auto) 0.0 % Basophils (%) (Auto) 0.4 % Neutrophils # (Auto) 7.2 TH/MM3 Lymphocytes # (Auto) 1.4 TH/MM3 Monocytes # (Auto) 0.5 TH/MM3 Eosinophils # (Auto) 0.0 TH/MM3 Basophils # (Auto) 0.0 TH/MM3 CBC Comment DIFF FINAL Differential Comment Prothrombin Time 11.4 SEC Prothromb Time International Ratio 1.0 RATIO Activated Partial Thromboplast Time 24.0 SEC Blood Urea Nitrogen 3 MG/DL Creatinine 0.76 MG/DL Random Glucose 168 MG/DL Total Protein 7.2 GM/DL Albumin 3.5 GM/DL Calcium Level 8.1 MG/DL Magnesium Level 1.6 MG/DL Alkaline Phosphatase 65 U/L Aspartate Amino Transf (AST/SGOT) 39 U/L Alanine Aminotransferase (ALT/SGPT) 98 U/L Total Bilirubin 0.5 MG/DL Sodium Level 138 MEQ/L Potassium Level 3.3 MEQ/L Chloride Level 98 MEQ/L Carbon Dioxide Level 26.8 MEQ/L Anion Gap 13 MEQ/L Estimat Glomerular Filtration Rate 107 ML/MIN Total Creatine Kinase 162 U/L 145 U/L 103 U/L Creatine Kinase MB 0.8 NG/ML 1.3 NG/ML 1.1 NG/ML Troponin I LESS THAN 0.02 NG/ML 0.02 NG/ML 0.02 NG/ML B-Type Natriuretic Peptide 139 PG/ML Lipase 109 U/L Thyroid Stimulating Hormone 3rd Gen 0.251 uIU/ML Salicylates Level LESS THAN 1.7 MG/DL Acetaminophen Level LESS THAN 2.0 MCG/ML Ethyl Alcohol Level 167 MG/DL Urine Color YELLOW Urine Turbidity CLEAR Urine pH 8.0 Urine Specific [place] 1.014 Urine Protein 30 mg/dL Urine Glucose (UA) NEG mg/dL Urine Ketones NEG mg/dL Urine Occult Blood NEG Urine Nitrite NEG Urine Bilirubin NEG Urine Urobilinogen 2.0 MG/DL Urine Leukocyte Esterase TRACE Urine RBC LESS THAN 1 /hpf Urine WBC 10 /hpf Urine Hyaline Casts 3 /lpf Microscopic Urinalysis Comment CULTURE INDICATED Urine Opiates Screen NEG Urine Barbiturates Screen NEG Urine Amphetamines Screen NEG Urine Benzodiazepines Screen NEG Urine Cocaine Screen NEG Urine Cannabinoids Screen NEG Date/Time Source Procedure Growth Status 11/09/16 20:35 Urine Random Urine Urine Culture - Preliminary NO GROWTH IN 24 HOURS. Resulted Mental Status Examination Appearance man, [facility], calm and cooperative Speech: Unremarkable Orientation: x3 Memory: Unremarkable Thought Process: Logical Thought Content: Unremarkable Hallucination Type: None Suicidal Ideation: No Homicidal Ideation: No Previous Homicide Attempts: No Judgment: WNL Affect: Good Mood: Appropriate Motor Activity: Normal gait Assessment & Plan Problem List: (1) Alcohol dependence ICD Codes: F10.20 - Alcohol dependence, uncomplicated Status: Acute Assessment & Plan: On psychiatric evaluation today the patient does not present any significant symptomatology of depression, anxiety, denice or psychosis. Patient denies suicidal ideation, homicidal ideation, visual and auditory hallucinations. His recent suicidal statement was electronically the result of alcohol intoxication. Patient was wildly educated on the importance of avoiding alcohol and engaging in a detox/rehabilitation program. Referral for AA provided. Support, motivation and psychoeducation provided. Lee act will be lifted. Assessment & Plan Estimated LOS: Barry Avery MD Nov 10, 2016 14:52
--- NOTE | 2016-11-10 14:57 | HHI.DCPOC ---
Discharge Care Plan Diagnosis: (1) Chest pain (2) CAD (coronary artery disease) (3) Hx of CABG (4) H/O heart artery stent (5) Alcohol dependence (6) Tobacco abuse (7) Hypertension (8) Hyperlipidemia Goals to Promote Your Health * To prevent worsening of your condition and complications * To maintain your health at the optimal level Directions to Meet Your Goals Take your medications as prescribed Follow your dietary instruction Follow activity as directed Keep your appointments as scheduled Take your immunizations and boosters as scheduled If your symptoms worsen call your PCP, if no PCP go to Urgent Care Center or Emergency Room Smoking is Dangerous to Your Health. Avoid second hand smoke Call the 24-hour hour crisis hotline for domestic abuse at [facility] [place] Nov 10, 2016 14:57
[2016-11-10] MEDS ORDERED: ATORVASTATIN 40 MG TAB PO SCH (21:00)
== END 2016-11-10 16:07 | disposition home or self-care (01) ==
LOC: NEPE 20:17 → NEDA 22:05 → NEPFCDU 11-10 00:28
PROVIDERS: ADMIT Internal Medicine Interventional Cardiology; ATTEND Internal Medicine Interventional Cardiology
DX: R07.89 Other chest pain (principal); I25.10 Atherosclerotic heart disease of native coronary artery without angina pectoris; I10 Essential (primary) hypertension; E78.5 Hyperlipidemia, unspecified; J98.11 Atelectasis; R82.79 Other abnormal findings on microbiological examination of urine; F10.20 Alcohol dependence, uncomplicated; F17.210 Nicotine dependence, cigarettes, uncomplicated; R45.851 Suicidal ideations; Z95.1 Presence of aortocoronary bypass graft; Z95.5 Presence of coronary angioplasty implant and graft
CPT/HCPCS: 71010; 78452; 80053; 80307; 81001; 82550; 82552; 83690; 83735; 83880; 84443; 84484; 85025; 85610; 85730; 87086; 93005; 93017; 96361; 96374; 96375; 96376; 99285; A9502; C9113; G0378; J0780; J2060; J2785; J7040